=== PATIENT | female | born 1980 | race Caucasian/White ===

== ENCOUNTER → 2016-05-12 | Outpatient (CLI) | payer BC ==
[2016-05-12 11:29] LABS: Basophils # (A) 0.1 k/uL (0-0.2); Basophils % (A) 1 %; CH 30.9; CHCM 31.3; Eosinophils # (A) 0.1 k/uL (0-0.7); Eosinophils % (A) 1 %; HCT 44.1 % (34.0-46.0); HGB 14.1 gm/dL (11.4-16.0); Hypochromasia Slight; Luc # (Auto) 0.22; Luc % (Auto) 2; Lymphocytes # (A) 1.5 k/uL (1.0-4.8); Lymphocytes % (A) 15 %; MCH 31.7 pg (25.0-35.0); MCV 99.3 fL (80.0-100.0); Mean Platelet Volume 8.9; Monocytes # (A) 0.5 k/uL (0-1.0); Monocytes % (A) 5 %; Neutrophils # (A) 7.5 k/uL (1.3-7.7); Neutrophils % (A) 76 %; RBC 4.44 m/uL (3.80-5.40); WBC 9.9 k/uL (3.8-10.6); WBC (Perox) 10.43
[2016-05-12 12:45] LABS: ALT 31 U/L (9-52); AST 26 U/L (14-36); Alkaline Phosphatase 72 U/L (38-126); Anion Gap 11 mmol/L; Blood Urea Nitrogen 18 mg/dL (7-17); Calcium 9.7 mg/dL (8.4-10.2); Carbon Dioxide 21 mmol/L (22-30); Chloride 109 mmol/L (98-107); Cholesterol 140 mg/dL (<200); Glucose 90 mg/dL (74-99); HDL Cholesterol 39 mg/dL (40-60); Non-African American GFR(MDRD) >60 (>60 ml/min/1.73 sqM); Potassium 4.5 mmol/L (3.5-5.1); Sodium 141 mmol/L (137-145); Total Bilirubin 0.9 mg/dL (0.2-1.3); Triglycerides 161 mg/dL (<150)
[2016-05-12 13:33] LABS: Vitamin B12 704 pg/mL (239-931)
[2016-05-14 14:16] LABS: Methylmalonic Acid 0.13 umol/L (<0.40)
== END | disposition home or self-care (01) ==
LOC: LABWHC1 11:07
PROVIDERS: ATTEND Internal Medicine Interventional Cardiology
DX: D51.9 Vitamin B12 deficiency anemia, unspecified (principal); D52.9 Folate deficiency anemia, unspecified; I67.89 Other cerebrovascular disease; I10 Essential (primary) hypertension; E78.2 Mixed hyperlipidemia
CPT/HCPCS: 36415; 80053; 80061; 82607; 82747; 83921; 85025

== ENCOUNTER → 2016-06-04 | Outpatient (CLI) | payer BC ==
--- NOTE | 2016-06-04 09:21 | MR ---
EXAMINATION TYPE: MR angio head wo con DATE OF EXAM: 06/04/2016 9:06 AM COMPARISON: NONE HISTORY: Stroke. TECHNIQUE: Time of flight images focusing on the [place] were performed without contrast. FINDINGS: The right vertebral artery is dominant. The right posterior communicating artery is visuali zed. The left is not. Both ophthalmic arteries are visualized. The M1 segment of the right middle cerebral artery is occluded. Vasculature in the right middle cereb ral artery territory is markedly decreased. There is also occlusion of the A1 segment of the left anterior cerebral artery. The anterior communic ating artery is not visualized. No sizable aneurysm is seen. IMPRESSION: 1. OCCLUSION OF THE M1 SEGMENT OF THE RIGHT MIDDLE CEREBRAL ARTERY. 2. OCCLUSION OF THE A1 SEGMENT OF THE ANTERIOR CEREBRAL ARTERY ON THE LEFT. 3. NONVISUALIZATION OF THE ANTERIOR COMMUNICATING ARTERY.
== END | disposition home or self-care (01) ==
LOC: RADMRIMAIN 08:24
PROVIDERS: ATTEND Psychiatry & Neurology Neurology
DX: I63.9 Cerebral infarction, unspecified (principal); I66.01 Occlusion and stenosis of right middle cerebral artery; I66.12 Occlusion and stenosis of left anterior cerebral artery
CPT/HCPCS: 70544

== ENCOUNTER 2016-06-07 12:09 | Emergency (ER) | payer BC ==
[2016-06-07] MEDS ORDERED: SODIUM CHLORIDE 0.9% 1,000 ML IV STA (15:29)
[2016-06-07] MEDS ORDERED: HYDROmorphone 1 MG/ML 1 ML SYRINGE IVP STA (15:31)
--- NOTE | 2016-06-07 15:37 | ED ---
General Adult HPI - General Chief complaint: Recheck/Abnormal Lab/Rx Stated complaint: poss stroke, all-over pain Time Seen by Provider: 06/07/16 15:16 Source: patient Mode of arrival: wheelchair Limitations: no limitations - History of Present Illness Initial comments: I am she has a recent history of 4 hours for 06 she had a full stroke at age of 35 that was in July 2015 and since then she has a residual weakness of the left upper extremity and the left lower extremity she presents with the left upper extremity pain and the left lower extremity pain she was doing physical therapy she denies any fall no trauma no car accidents with her pain is unbearable she is crying denies any headaches no blurred vision no slurred speech no difficulty comprehending speech but she is concerned is that another new stroke denies any chest pain no abdominal pain no frequency urgency dysuria - Related Data Home Medications Medication Instructions Recorded Confirmed Aspirin 81 mg PO DAILY 02/02/16 06/07/16 Atorvastatin [Lipitor] 80 mg PO DAILY 02/02/16 06/07/16 DULoxetine HCL [Cymbalta] 30 mg PO DAILY 02/02/16 06/07/16 Gabapentin [Neurontin] 400 mg PO TID 02/02/16 06/07/16 Isomethept/Dichlphn/Acetaminop 1 cap PO BID PRN 02/02/16 06/07/16 [Midrin] Lisinopril [Zestril] 20 mg PO DAILY 02/02/16 06/07/16 Topiramate [Topamax] 50 mg PO HS 02/02/16 06/07/16 clonazePAM [KlonoPIN] 0.5 mg PO TID 02/02/16 06/07/16 tiZANidine HCL 12 mg PO HS 02/02/16 06/07/16 Baclofen [Lioresal] 10 mg PO Q6H PRN 06/07/16 06/07/16 Cyanocobalamin [Vitamin B-12 1,000 mcg SQ QMONTH 06/07/16 06/07/16 Injection] Folic Acid 1 mg PO DAILY 06/07/16 06/07/16 Hydrochlorothiazide [Hydrodiuril] 12.5 mg PO DAILY 06/07/16 06/07/16 Warfarin [Coumadin] 2.5 mg PO TUTH 06/07/16 06/07/16 Warfarin [Coumadin] 5 mg PO SUMOWEFRSA 06/07/16 06/07/16 Previous Rx's Medication Instructions Recorded amLODIPine [Norvasc] 10 mg PO DAILY #30 tablet 02/04/16 oxyCODONE-APAP 7.5-325MG [Percocet 1 tab PO Q6HR PRN #20 tab 06/07/16 7.5-325 mg] Allergies Allergy/AdvReac Type Severity Reaction Status Date / Time pregabalin [From Lyrica] Allergy Swelling Verified 06/07/16 15:17 Review of Systems ROS Statement: Those systems with pertinent positive or pertinent negative responses have been documented in the HPI. ROS Other: All systems not noted in ROS Statement are negative. Past Medical History Past Medical History: CVA/TIA, Fibromyalgia Additional Past Medical History / Comment(s): Pt states she has had 2 previous CVAs with L sided weakness, she currently has a loop recorder in place and states she has had 2 pauses-one 3 seconds and was asymptomatic and one 8 seconds where she felt briefly dizzy, headaches, L hand pain and sometimes hand curls. History of Any Multi-Drug Resistant Organisms: None Reported Past Surgical History: Tonsillectomy Additional Past Surgical History / Comment(s): 09/2015 loop recorder, GEORGE, EGD Past Anesthesia/Blood Transfusion Reactions: No Reported Reaction Past Psychological History: Anxiety Additional Psychological History / Comment(s): Pt states she takes klonopin for anxiety and that it works well. She lives with her spouse and is adopting a 1 yr old boy. She states that the adoption is somewhat stressful because it is a family adoption so the child's mother is around. She states her strokes have also made her have increased anxiety. She uses no assistive device. She is not driving at this time. Smoking Status: Never smoker Past Alcohol Use History: None Reported Past Drug Use History: None Reported - Past Family History Father Family Medical History: Coronary Artery Disease (CAD), Diabetes Mellitus Additional Family Medical History / Comment(s): Father has a stent that was placed when he was 67yrs old. Mother Family Medical History: Cancer, Hypertension Additional Family Medical History / Comment(s): Mother has had breast cancer and melanoma. General Exam - General Exam Comments Initial Comments: General: The patient is awake and alert, in no distress, and does not appear acutely ill. She has is 15 Skin: Skin is warm and dry and no rashes or lesions are noted. Eye: Pupils are equal, round and reactive to light, extra-ocular movements are intact; there is normal conjunctiva bilaterally. Ears, nose, mouth and throat: There are moist mucous membranes and no oral lesions. Neck: The neck is supple, there is no tenderness or JVD. Cardiovascular: There is a regular rate and rhythm. No murmur, rub or gallop is appreciated. Respiratory: To auscultation bilateral, no wheezing no rhonchi no distress respiratory longo noticed Gastrointestinal: Soft, non-distended, non-tender abdomen without masses or organomegaly noted. There is no rebound or guarding present. Bowel sounds are unremarkable. Back: There is no tenderness to palpation in the midline. There is no obvious deformity. Musculoskeletal: Normal ROM, no tenderness, There is no pedal edema. There is no calf tenderness or swelling. No cords were appreciated. Neurological: CN II-XII intact, she has a residual weakness of the left upper extremity from her previous stroke and there is a mild contracture of the left hand as well sensory functions are intact left lower extremity motor and sensory functions are intact deep tendon reflexes are within normal range Psychiatric: Cooperative, seems depressed Limitations: no limitations Course Vital Signs 06/07/16 06/07/16 06/07/16 12:15 15:38 16:41 Temperature 97.4 F L Pulse Rate 68 66 79 Respiratory 18 17 17 Rate Blood Pressure 181/104 169/85 153/79 O2 Sat by Pulse 100 100 Oximetry She was reassessed 3 times last reassessment was done at 181, CT report as well as reviewed and discussed with the patient on the findings comparing to her old CT done here in this hospital, and she told me that she had another stroke and that was in [facility] within the last few weeks she seen Dr. Mora a neurologist and she had MRA done and she is easily she is also seeing a neurosurgeon and waning stateshe do not want to stay in the hospital, I offered her to be observed in the hospital for [address] Hogue see her as she said she is all set since he had MRA done there was seen to Dr. Brito neurologist and a neurosurgeon or she is requesting some pain medications were discussed with(s) for his pain management is concerned EKG Findings - EKG Comments: EKG Findings:: EKG is normal sinus rhythm with a ventricular rate is 79 MA interval is 134 QRS duration is 92 QT/QTc C is 486/4672 field of this EKG WILVER reason T-wave inversion in lead V2 no ST elevation or ST depression noticed in the other leads Medical Decision Making - Lab Data Result diagrams: 06/07/16 15:35 06/07/16 15:35 Lab Results 06/07/16 06/07/16 06/07/16 Range/Units 15:35 15:35 15:35 WBC 10.2 (3.8-10.6) k/uL RBC 4.50 (3.80-5.40) m/uL Hgb 13.8 (11.4-16.0) gm/dL Hct 41.9 (34.0-46.0) % MCV 93.0 D (80.0-100.0) fL MCH 30.6 (25.0-35.0) pg MCHC 33.0 (31.0-37.0) g/dL RDW 12.5 (11.5-15.5) % Plt Count 232 (150-450) k/uL Neutrophils % 73 % Lymphocytes % 18 % Monocytes % 5 % Eosinophils % 2 % Basophils % 1 % Neutrophils # 7.4 (1.3-7.7) k/uL Lymphocytes # 1.8 (1.0-4.8) k/uL Monocytes # 0.5 (0-1.0) k/uL Eosinophils # 0.2 (0-0.7) k/uL Basophils # 0.1 (0-0.2) k/uL PT (9.0-12.0) sec INR (<1.1) APTT (22.0-30.0) sec Sodium 141 (137-145) mmol/L Potassium 4.5 (3.5-5.1) mmol/L Chloride 106 (98-107) mmol/L Carbon Dioxide 23 (22-30) mmol/L Anion Gap 12 mmol/L BUN 25 H (7-17) mg/dL Creatinine 0.80 (0.52-1.04) mg/dL Est GFR (MDRD) Af Amer >60 (>60 ml/min/1.73 sqM) Est GFR (MDRD) Non-Af >60 (>60 ml/min/1.73 sqM) Glucose 90 (74-99) mg/dL Calcium 9.7 (8.4-10.2) mg/dL Total Bilirubin 0.8 (0.2-1.3) mg/dL AST 32 (14-36) U/L ALT 27 (9-52) U/L Alkaline Phosphatase 78 (38-126) U/L Total Creatine Kinase 125 (30-135) U/L CK-MB (CK-2) 1.6 (0.0-2.4) ng/mL CK-MB (CK-2) Rel Index 1.3 Troponin I <0.012 (0.000-0.034) ng/mL Total Protein 7.8 (6.3-8.2) g/dL Albumin 4.3 (3.5-5.0) g/dL 06/07/16 Range/Units 15:35 WBC (3.8-10.6) k/uL RBC (3.80-5.40) m/uL Hgb (11.4-16.0) gm/dL Hct (34.0-46.0) % MCV (80.0-100.0) fL MCH (25.0-35.0) pg MCHC (31.0-37.0) g/dL RDW (11.5-15.5) % Plt Count (150-450) k/uL Neutrophils % % Lymphocytes % % Monocytes % % Eosinophils % % Basophils % % Neutrophils # (1.3-7.7) k/uL Lymphocytes # (1.0-4.8) k/uL Monocytes # (0-1.0) k/uL Eosinophils # (0-0.7) k/uL Basophils # (0-0.2) k/uL PT 15.7 H (9.0-12.0) sec INR 1.6 (<1.1) APTT 26.3 (22.0-30.0) sec Sodium (137-145) mmol/L Potassium (3.5-5.1) mmol/L Chloride (98-107) mmol/L Carbon Dioxide (22-30) mmol/L Anion Gap mmol/L BUN (7-17) mg/dL Creatinine (0.52-1.04) mg/dL Est GFR (MDRD) Af Amer (>60 ml/min/1.73 sqM) Est GFR (MDRD) Non-Af (>60 ml/min/1.73 sqM) Glucose (74-99) mg/dL Calcium (8.4-10.2) mg/dL Total Bilirubin (0.2-1.3) mg/dL AST (14-36) U/L ALT (9-52) U/L Alkaline Phosphatase (38-126) U/L Total Creatine Kinase (30-135) U/L CK-MB (CK-2) (0.0-2.4) ng/mL CK-MB (CK-2) Rel Index Troponin I (0.000-0.034) ng/mL Total Protein (6.3-8.2) g/dL Albumin (3.5-5.0) g/dL Disposition Clinical Impression: Left-sided weakness Disposition: HOME SELF-CARE Condition: Good Instructions: Self Care Measures After a Stroke (ED) Prescriptions: oxyCODONE-APAP 7.5-325MG [Percocet 7.5-325 mg] 1 tab PO Q6HR PRN #20 tab PRN Reason: Pain Referrals: Nonstaff,Physician [Primary Care Provider] - 1-2 days
[2016-06-07 15:39] VITALS: RESP 17
[2016-06-07 15:50] LABS: Basophils # (A) 0.1 k/uL (0-0.2); Basophils % (A) 1 %; CH 30.8; CHCM 33.3; Eosinophils # (A) 0.2 k/uL (0-0.7); Eosinophils % (A) 2 %; HCT 41.9 % (34.0-46.0); HDW 2.53; HGB 13.8 gm/dL (11.4-16.0); Luc # (Auto) 0.23; Luc % (Auto) 2; Lymphocytes # (A) 1.8 k/uL (1.0-4.8); Lymphocytes % (A) 18 %; MCH 30.6 pg (25.0-35.0); Mean Platelet Volume 8.4; Monocytes # (A) 0.5 k/uL (0-1.0); Monocytes % (A) 5 %; Neutrophils # (A) 7.4 k/uL (1.3-7.7); Neutrophils % (A) 73 %; RDW 12.5 % (11.5-15.5); WBC 10.2 k/uL (3.8-10.6); WBC (Perox) 10.34
[2016-06-07 16:02] LABS: ALT 27 U/L (9-52); AST 32 U/L (14-36); Alkaline Phosphatase 78 U/L (38-126); Anion Gap 12 mmol/L; Blood Urea Nitrogen 25 mg/dL (7-17); Calcium 9.7 mg/dL (8.4-10.2); Carbon Dioxide 23 mmol/L (22-30); Chloride 106 mmol/L (98-107); Glucose 90 mg/dL (74-99); INR 1.6 (<1.1); Partial Thromboplastin Time 26.3 sec (22.0-30.0); Potassium 4.5 mmol/L (3.5-5.1); Prothrombin Time 15.7 sec (9.0-12.0); Sodium 141 mmol/L (137-145); Total Bilirubin 0.8 mg/dL (0.2-1.3); Total Protein 7.8 g/dL (6.3-8.2)
--- NOTE | 2016-06-07 16:16 | CT ---
EXAMINATION TYPE: CT brain wo con DATE OF EXAM: 06/07/2016 4:01 PM COMPARISON: 02/02/2016 HISTORY: 35-year-old female with left sided body pain with history of CVA. Neurologic deficits. TECHNIQUE: Examination was done in axial plane without intravenous contrast. Coronal and sagittal r econstructions performed. CT DLP: 1017.9 mGycm Automated exposure control for dose reduction was used. FINDINGS: As compared to 02/02/2016, there has been right MCA territory infarct involving the frontal lobe, ant erior insular lobe, and anterior temporal lobe. Hypodensity measures that of CSF density suggesting encephalomalacia and chronic insult. There is ex vacuo enlargement of the frontal horn and body of the right lateral ventricle. There is n o midline shift or effacement of basal subarachnoid cisterns. No hydrocephalus. No evidence for acut e intracranial hemorrhage. Patient's gaze is divergent suggesting underlying strabismus. Paranasal sinuses and mastoid air cells well pneumatized. IMPRESSION: 1. Chronic right MCA territory infarct though new from 02/02/2016. If there is concern for subtle und erlying acute ischemia, MRI can be considered. 2. No acute intracranial hemorrhage, mass effect, or midline shift.
[2016-06-07 16:18] LABS: Non-African American GFR(MDRD) >60 (>60 ml/min/1.73 sqM)
[2016-06-07 16:20] LABS: Creatine Kinase 125 U/L (30-135)
--- NOTE | 2016-06-07 16:28 | XR ---
EXAMINATION TYPE: XR chest 2V DATE OF EXAM: 06/07/2016 4:19 PM COMPARISON: 02/02/2016 HISTORY: 35 year-old female altered mental status TECHNIQUE: Frontal and lateral views FINDINGS: Heart appears prominent likely due to AP projection. Aorta and pulmonary vasculature within normal li mits. No consolidation or pleural effusion. A rectangular electronic device projects over the left he art likely a loop recorder. IMPRESSION: No acute cardiopulmonary process.
[2016-06-07 16:39] LABS: Creatine Kinase MB 1.6 ng/mL (0.0-2.4); Troponin I <0.012 ng/mL (0.000-0.034)
[2016-06-07 18:52] VITALS: BP 152/69; PULSE 78; TEMP 97.8
== END 2016-06-07 18:51 | disposition home or self-care (01) ==
LOC: EC 12:09
DX: I69.954 Hemiplegia and hemiparesis following unspecified cerebrovascular disease affecting left non-dominant side (principal); F41.9 Anxiety disorder, unspecified; Z88.8 Allergy status to other drugs, medicaments and biological substances; Z79.01 Long term (current) use of anticoagulants; Z79.82 Long term (current) use of aspirin; Z79.899 Other long term (current) drug therapy
CPT/HCPCS: 99284 ×2; 96374 ×2; 96361 ×4; 36415; 93005; 80053; 82550; 82553; 84484; 85025; 85610; 85730; 71020; 70450; J1170

== ENCOUNTER 2016-06-13 12:10 | Inpatient (IN) | payer BC ==
[2016-06-13] MEDS ORDERED: SODIUM CHLORIDE 0.9% 1,000 ML IV STA (12:16)
[2016-06-13] MEDS ORDERED: RX INFO: IV CONTRAST WAS GIVEN 1 EACH MISC MISCELLANE PRN (12:16)
[2016-06-13 12:29] LABS: Glucose,Whole Blood 132 mg/dL (75-99)
--- NOTE | 2016-06-13 12:30 | ED ---
General Adult HPI - General Stated complaint: Poss.Stroke Time Seen by Provider: 06/13/16 12:15 Source: patient, EMS, RN notes reviewed Mode of arrival: EMS Limitations: altered mental status, physical limitation - History of Present Illness Initial comments: Patient is a pleasant 35-year-old female presenting to the emergency department for family concerns of stroke. The report patient woke around 7 AM and has been more confused since that time. Patient has left-sided weakness. Patient has some chronic left-sided weakness and EMS is unclear how this relates to baseline. Patient is a poor historian however denies any complaints. Patient states she is normal for her baseline. EMS reports patient did walk fine to the stretcher. - Related Data Home Medications Medication Instructions Recorded Confirmed Aspirin 81 mg PO DAILY 02/02/16 06/13/16 Atorvastatin [Lipitor] 80 mg PO DAILY 02/02/16 06/13/16 DULoxetine HCL [Cymbalta] 30 mg PO DAILY 02/02/16 06/13/16 Gabapentin [Neurontin] 400 mg PO TID 02/02/16 06/13/16 Lisinopril [Zestril] 20 mg PO DAILY 02/02/16 06/13/16 Topiramate [Topamax] 50 mg PO HS 02/02/16 06/13/16 Baclofen [Lioresal] 10 mg PO Q6H PRN 06/07/16 06/13/16 Cyanocobalamin [Vitamin B-12 1,000 mcg SQ QMONTH 06/07/16 06/13/16 Injection] Folic Acid 1 mg PO DAILY 06/07/16 06/13/16 Hydrochlorothiazide [Hydrodiuril] 12.5 mg PO DAILY 06/07/16 06/13/16 Warfarin [Coumadin] 2.5 mg PO TU 06/07/16 06/13/16 Warfarin [Coumadin] 5 mg PO SUMOWETHFRSA 06/07/16 06/13/16 Diazepam [Valium] 2 mg PO HS 06/13/16 06/13/16 LORazepam [Ativan] 0.5 mg PO ONCE PRN 06/13/16 06/13/16 tiZANidine HCL [Zanaflex] 8 mg PO HS 06/13/16 06/13/16 Previous Rx's Medication Instructions Recorded amLODIPine [Norvasc] 10 mg PO DAILY #30 tablet 02/04/16 oxyCODONE-APAP 7.5-325MG [Percocet 1 tab PO Q6HR PRN #20 tab 06/07/16 7.5-325 mg] Allergies Allergy/AdvReac Type Severity Reaction Status Date / Time pregabalin [From Lyrica] Allergy Swelling Verified 06/13/16 14:15 Review of Systems ROS Statement: Those systems with pertinent positive or pertinent negative responses have been documented in the HPI. ROS Other: All systems not noted in ROS Statement are negative. Constitutional: Denies: fever Eyes: Denies: eye pain ENT: Denies: ear pain Respiratory: Denies: cough Cardiovascular: Denies: chest pain Endocrine: Denies: fatigue Gastrointestinal: Denies: abdominal pain Genitourinary: Denies: dysuria Musculoskeletal: Denies: back pain Skin: Denies: rash Neurological: Denies: weakness Past Medical History Past Medical History: CVA/TIA, Fibromyalgia Additional Past Medical History / Comment(s): Pt states she has had 2 previous CVAs with L sided weakness, she currently has a loop recorder in place and states she has had 2 pauses-one 3 seconds and was asymptomatic and one 8 seconds where she felt briefly dizzy, headaches, L hand pain and sometimes hand curls. History of Any Multi-Drug Resistant Organisms: None Reported Past Surgical History: Tonsillectomy Additional Past Surgical History / Comment(s): 09/2015 loop recorder, GEORGE, EGD Past Anesthesia/Blood Transfusion Reactions: No Reported Reaction Past Psychological History: Anxiety Additional Psychological History / Comment(s): Pt states she takes klonopin for anxiety and that it works well. She lives with her spouse and is adopting a 1 yr old boy. She states that the adoption is somewhat stressful because it is a family adoption so the child's mother is around. She states her strokes have also made her have increased anxiety. She uses no assistive device. She is not driving at this time. Smoking Status: Never smoker Past Alcohol Use History: None Reported Past Drug Use History: None Reported - Past Family History Father Family Medical History: Coronary Artery Disease (CAD), Diabetes Mellitus Additional Family Medical History / Comment(s): Father has a stent that was placed when he was 67yrs old. Mother Family Medical History: Cancer, Hypertension Additional Family Medical History / Comment(s): Mother has had breast cancer and melanoma. General Exam Limitations: no limitations General appearance: alert, in no apparent distress Head exam: Present: atraumatic Eye exam: Present: normal appearance, other (Left pupil appears slightly dilated. Difficulty with left lateral gaze and upper gaze. Nystagmus on right gaze.) ENT exam: Present: normal oropharynx Neck exam: Present: normal inspection Respiratory exam: Present: normal lung sounds bilaterally Cardiovascular Exam: Present: regular rate, normal rhythm GI/Abdominal exam: Present: soft. Absent: tenderness Extremities exam: Present: normal inspection Neurological exam: Present: alert, altered (Oriented to year however unable oriented to month.), other (Somewhat limited exam. Difficulty following commands.) Expanded Neurological exam: Present: other (Left facial droop) Patient oriented to: Present: person, place. Absent: time Cranial nerves: Facial Sensation: Normal Sensory exam: Upper Extremity Light Touch: Normal, Lower Extremity Light Touch: Normal Motor strength exam: RUE: 2/1 (Good liver trimmer strength. Unable to hold arm up), LUE : 2/1 (Left hand contracted. Poor liver trimmer strength. Unable to hold arm.), RLE: 2/ 1, LLE: 2/1 Eye Response: (4) open spontaneously Motor Response: (6) obeys commands (With difficulty) Verbal Response: (4) confused conversation Psychiatric exam: Present: normal affect, normal mood Skin exam: Absent: rash Course Vital Signs 06/13/16 06/13/16 12:18 14:00 Temperature 97.6 F Pulse Rate 79 62 Respiratory 18 20 Rate Blood Pressure 124/74 143/86 O2 Sat by Pulse 97 Oximetry - Reevaluation(s) Reevaluation #1: 06/13/16 12:50 Patient reevaluated and drowsy. Family is present and states patient complained of anxiety this morning and took an Ativan that was not hers. They confirm onset of symptoms was prior to 7 AM. Unknown exact onset. 06/13/16 14:34 Further history taken from Dr. Xavier who states there has been evaluation for vascular disease. Patient has had high homocystine level and receptor positive for MTHFR mutation 06/13/16 17:01 Patient reexamined and significantly improved. Patient only with left arm weakness and left facial weakness. Extraocular muscles are intact. Patient updated on results and plan. Case discussed in detail with Dr. Brito, who will admit for hospital call. EKG Findings - EKG Comments: EKG Findings:: Normal sinus rhythm at 76. NC 144. QRS 94. QT 406. QTc 456. Normal axis. LVH criteria. No acute ST change. Medical Decision Making - Lab Data Result diagrams: 06/13/16 15:11 06/13/16 15:11 Lab Results 06/13/16 06/13/16 06/13/16 Range/Units 12:13 15:11 15:11 WBC 16.0 H (3.8-10.6) k/uL RBC 4.50 (3.80-5.40) m/uL Hgb 14.3 (11.4-16.0) gm/dL Hct 41.9 (34.0-46.0) % MCV 93.2 (80.0-100.0) fL MCH 31.7 (25.0-35.0) pg MCHC 34.0 (31.0-37.0) g/dL RDW 12.4 (11.5-15.5) % Plt Count 258 (150-450) k/uL Neutrophils % 84 % Lymphocytes % 9 % Monocytes % 5 % Eosinophils % 0 % Basophils % 0 % Neutrophils # 13.5 H (1.3-7.7) k/uL Lymphocytes # 1.4 (1.0-4.8) k/uL Monocytes # 0.8 (0-1.0) k/uL Eosinophils # 0.0 (0-0.7) k/uL Basophils # 0.1 (0-0.2) k/uL PT 17.8 H (9.0-12.0) sec INR 1.8 (<1.1) APTT 28.1 (22.0-30.0) sec Sodium (137-145) mmol/L Potassium (3.5-5.1) mmol/L Chloride (98-107) mmol/L Carbon Dioxide (22-30) mmol/L Anion Gap mmol/L BUN (7-17) mg/dL Creatinine (0.52-1.04) mg/dL Est GFR (MDRD) Af Amer (>60 ml/min/1.73 sqM) Est GFR (MDRD) Non-Af (>60 ml/min/1.73 sqM) Glucose (74-99) mg/dL POC Glucose (mg/dL) 132 H (75-99) mg/dL POC Glu Recycle Coordinator ID Fay Sol Calcium (8.4-10.2) mg/dL Total Bilirubin (0.2-1.3) mg/dL AST (14-36) U/L ALT (9-52) U/L Alkaline Phosphatase (38-126) U/L Total Creatine Kinase (30-135) U/L CK-MB (CK-2) (0.0-2.4) ng/mL CK-MB (CK-2) Rel Index Troponin I (0.000-0.034) ng/mL Total Protein (6.3-8.2) g/dL Albumin (3.5-5.0) g/dL Urine Color Urine Appearance (Clear) Urine pH (5.0-8.0) Ur Specific [place] (1.001-1.035) Urine Protein (Negative) Urine Glucose (UA) (Negative) Urine Ketones (Negative) Urine Blood (Negative) Urine Nitrite (Negative) Urine Bilirubin (Negative) Urine Urobilinogen (<2.0) mg/dL Ur Leukocyte Esterase (Negative) Urine WBC (0-5) /hpf Ur Squamous Epith Cells (0-4) /hpf Urine Bacteria (None) /hpf Urine Mucus (None) /hpf 06/13/16 06/13/16 06/13/16 Range/Units 15:11 15:11 15:32 WBC (3.8-10.6) k/uL RBC (3.80-5.40) m/uL Hgb (11.4-16.0) gm/dL Hct (34.0-46.0) % MCV (80.0-100.0) fL MCH (25.0-35.0) pg MCHC (31.0-37.0) g/dL RDW (11.5-15.5) % Plt Count (150-450) k/uL Neutrophils % % Lymphocytes % % Monocytes % % Eosinophils % % Basophils % % Neutrophils # (1.3-7.7) k/uL Lymphocytes # (1.0-4.8) k/uL Monocytes # (0-1.0) k/uL Eosinophils # (0-0.7) k/uL Basophils # (0-0.2) k/uL PT (9.0-12.0) sec INR (<1.1) APTT (22.0-30.0) sec Sodium 143 (137-145) mmol/L Potassium 4.4 (3.5-5.1) mmol/L Chloride 105 (98-107) mmol/L Carbon Dioxide 21 L (22-30) mmol/L Anion Gap 17 mmol/L BUN 34 H (7-17) mg/dL Creatinine 1.20 H (0.52-1.04) mg/dL Est GFR (MDRD) Af Amer >60 (>60 ml/min/1.73 sqM) Est GFR (MDRD) Non-Af 51 (>60 ml/min/1.73 sqM) Glucose 89 (74-99) mg/dL POC Glucose (mg/dL) (75-99) mg/dL POC Glu Recycle Coordinator ID Calcium 10.2 (8.4-10.2) mg/dL Total Bilirubin 0.7 (0.2-1.3) mg/dL AST 34 (14-36) U/L ALT 35 (9-52) U/L Alkaline Phosphatase 92 (38-126) U/L Total Creatine Kinase 225 H (30-135) U/L CK-MB (CK-2) 1.7 (0.0-2.4) ng/mL CK-MB (CK-2) Rel Index 0.8 Troponin I <0.012 (0.000-0.034) ng/mL Total Protein 8.5 H (6.3-8.2) g/dL Albumin 4.6 (3.5-5.0) g/dL Urine Color Light Yellow Urine Appearance Clear (Clear) Urine pH 5.5 (5.0-8.0) Ur Specific [place] 1.007 (1.001-1.035) Urine Protein Negative (Negative) Urine Glucose (UA) Negative (Negative) Urine Ketones Negative (Negative) Urine Blood Trace H (Negative) Urine Nitrite Negative (Negative) Urine Bilirubin Negative (Negative) Urine Urobilinogen <2.0 (<2.0) mg/dL Ur Leukocyte Esterase Negative (Negative) Urine WBC 1 (0-5) /hpf Ur Squamous Epith Cells 2 (0-4) /hpf Urine Bacteria Rare H (None) /hpf Urine Mucus Rare H (None) /hpf - Radiology Data Radiology results: image reviewed (Chest x-ray shows no acute process. Computed tomography scan of the brain shows no acute process, old right frontal parietal infarct.) Disposition Clinical Impression: Transient cerebral ischemia Disposition: ADMITTED IP TO THIS HOSP Condition: Serious
--- NOTE | 2016-06-13 13:34 | CT ---
EXAMINATION TYPE: CT brain wo con for TPA DATE OF EXAM: 06/13/2016 1:27 PM COMPARISON: 06/07/2016 INDICATION: Decrease LOC with confusion DLP: 1054.2 mGycm, Automated exposure control for dose reduction was used. CONTRAST: None CT of the brain is performed utilizing 3 mm thick sections through the posterior fossa and 3 mm thick sections through the remaining calvarium. Study is performed within 24 hours of arrival to the hosp ital. No abnormal hyperdensity is present to suggest an acute intracranial hemorrhage. No mass lesion is evident. No acute infarcts are evident. There is an old right frontal parietal infarct. Periventricular white matter hypodensity is present compatible with white matter ischemic changes. These findings appear to be old with ex vacuo effect evident on the right lateral ventricle. No midline shift is evident. Ventricles and sulci are prominent for the patient age. Mucosal thickening is through the bilateral maxillary sinuses. IMPRESSIONS: 1. Old right frontal parietal infarct with periventricular white matter ischemic changes. 2. No acute intracranial hemorrhage evident.
--- NOTE | 2016-06-13 13:55 | XR ---
EXAMINATION TYPE: XR chest 1V portable DATE OF EXAM: 06/13/2016 1:51 PM Comparison: 06/07/2016 Clinical History: 35-year-old female confusion, altered mental state Findings: Low lung volumes and lordotic positioning. This likely accentuates heart size and crowds the vascular markings. No consolidation, pneumothorax, or significant pleural effusion. Probable loop recorder pr ojecting along the left heart margin. Impression: Large body habitus and hypoventilatory changes. No definite acute process.
[2016-06-13] MEDS ORDERED: ACETAMINOPHEN TAB 500 MG TAB PO STA (15:50)
[2016-06-13 15:58] LABS: Appearance,Urine Clear (Clear); Bacteria,Urine Rare /hpf; Bilirubin,Urine Negative (Negative); Glucose,Urine (UA) Negative (Negative); Ketones,Urine Negative (Negative); Leukocyte Esterase,Urine Negative (Negative); Mucus,Urine Rare /hpf; Nitrite,Urine Negative (Negative); PH, Urine 5.5 (5.0-8.0); Particle Count 1925; Protein,Urine Negative (Negative); Specific Gravity,Urine 1.007 (1.001-1.035); Squamous Epithelial Cell,Urine 2 /hpf (0-4); UA Billing (MACRO vs. MICRO) MICRO; Urobilinogen,Urine <2.0 mg/dL (<2.0); WBC,Urine 1 /hpf (0-5)
[2016-06-13 16:05] LABS: Basophils # (A) 0.1 k/uL (0-0.2); Basophils % (A) 0 %; CH 30.1; CHCM 32.4; Eosinophils % (A) 0 %; HCT 41.9 % (34.0-46.0); HDW 2.48; HGB 14.3 gm/dL (11.4-16.0); Luc # (Auto) 0.23; Luc % (Auto) 1; Lymphocytes # (A) 1.4 k/uL (1.0-4.8); Lymphocytes % (A) 9 %; MCH 31.7 pg (25.0-35.0); MCV 93.2 fL (80.0-100.0); Mean Platelet Volume 8.8; Monocytes # (A) 0.8 k/uL (0-1.0); Monocytes % (A) 5 %; Neutrophils # (A) 13.5 k/uL (1.3-7.7); Neutrophils % (A) 84 %; RDW 12.4 % (11.5-15.5); WBC (Perox) 15.62
[2016-06-13 16:15] LABS: ALT 35 U/L (9-52); AST 34 U/L (14-36); Alkaline Phosphatase 92 U/L (38-126); Anion Gap 17 mmol/L; Blood Urea Nitrogen 34 mg/dL (7-17); Calcium 10.2 mg/dL (8.4-10.2); Carbon Dioxide 21 mmol/L (22-30); Chloride 105 mmol/L (98-107); Glucose 89 mg/dL (74-99); Non-African American GFR(MDRD) 51 (>60 ml/min/1.73 sqM); Potassium 4.4 mmol/L (3.5-5.1); Sodium 143 mmol/L (137-145); Total Bilirubin 0.7 mg/dL (0.2-1.3); Total Protein 8.5 g/dL (6.3-8.2)
[2016-06-13 16:18] LABS: INR 1.8 (<1.1)
[2016-06-13 16:19] LABS: Partial Thromboplastin Time 28.1 sec (22.0-30.0); Prothrombin Time 17.8 sec (9.0-12.0)
[2016-06-13 16:22] LABS: Creatine Kinase 225 U/L (30-135)
[2016-06-13 16:35] LABS: Creatine Kinase MB 1.7 ng/mL (0.0-2.4); Troponin I <0.012 ng/mL (0.000-0.034)
[2016-06-13] MEDS ORDERED: MORPHINE SULFATE 4 MG/ML SYRINGE IV STA (17:00)
[2016-06-13] MEDS ORDERED: ASPIRIN 325 MG TAB PO STA (17:02)
--- NOTE | 2016-06-13 17:34 | CT ---
EXAMINATION TYPE: CT angio head neck DATE OF EXAM: 06/13/2016 5:02 PM HISTORY: increased weakness. History of multiple strokes in the past year COMPARISON: CTA head and neck February 02, 2016. MRA head June 04, 2016. CT DLP: 1504 mGycm. Automated Exposure Control for Dose Reduction was Utilized. TECHNIQUE: CTA scan of the neck is performed with IV Contrast, patient injected with 100 mL of Omnip aque 350, axial images are obtained, coronal and sagittal reformatted images are reviewed. Three-D re constructed images are created on an independent workstation and reviewed. FINDINGS: Carotid/Vascular Structures: There is bovine type aortic arch redemonstrated. Right common carotid ar gerald shows normal origin from right brachiocephalic artery. There is no significant focal plaque or s tenosis in the right common carotid artery as well as the right carotid bulb. Patent external carotid artery is seen without significant plaque. There is small caliber right internal carotid artery shor tly after its origin with narrowing down to 2.2 mm seen on axial image 16 presumed congenital. There is very small supraclinoid segment of distal right internal carotid artery with poor flow seen in sma ll caliber anterior middle cerebral arteries. No significant focal plaque or stenosis left common carotid artery or carotid bulb is seen. No signif icant plaque or stenosis is seen in majority of left internal carotid artery. There is abrupt marked small caliber of the supraclinoid segment left internal carotid artery which remains patent though momin s significant focal narrowing seen best on axial image 40 series 13. There is patent left middle cere bral artery. There is faint small caliber left anterior cerebral artery. Patent small caliber anterio r communicating artery is present. There is patent external carotid artery on the left without signif icant stenosis. There is dominant right vertebral artery. Vertebral arteries are patent to basilar junction. There is hypoplastic left posterior communicating artery. Prior patent right posterior communicating artery o n MRA is not clearly identified suggesting occlusion or stenosis. Other: Age indeterminate infarct right MCA distribution is felt present on current exam similar to mo st recent to CTs with progression from MRI February 02. Acute on chronic infarct cannot be excluded. IMPRESSION: Small to medium vessel vasculitis needs to BE strongly considered as there is atypical si gnificant narrowing of supraclinoid segment distal internal carotid arteries bilaterally. Additional areas of small caliber narrowing in the right internal carotid artery are present. There is generaliz ed small caliber poor flow in the [place] with suspected stenosis of the previously visualiz ed patent right posterior communicating artery.
[2016-06-13] MEDS ORDERED: LORazepam 0.5 MG TAB PO PRN (19:37)
[2016-06-13] MEDS ORDERED: WARFARIN 5 MG TAB PO SCH (19:45)
[2016-06-13 20:10] LABS: Rheumatoid Factor, Qnt <9 IU/mL (<12)
--- NOTE | 2016-06-13 20:47 | XR ---
EXAMINATION TYPE: XR lumbar spine 2 or 3V DATE OF EXAM: 06/13/2016 8:42 PM CLINICAL HISTORY: Low back pain after multiple falls. TECHNIQUE: Frontal and lateral images of the lumbar spine are obtained. COMPARISON: None FINDINGS: There are 5 lumbar type vertebral bodies identified. The lumbar spine shows satisfactory alignment without evidence of acute fracture or dislocation. Vertebral body heights and disk space he ights are within normal limits. Contrast from recent CT is seen filling collecting systems of both ki dneys and opacifying bilateral renal cortex. IMPRESSION: No acute fracture or dislocation is seen in the lumbar spine.
--- NOTE | 2016-06-13 20:48 | XR ---
EXAMINATION TYPE: XR ribs LT DATE OF EXAM: 06/13/2016 8:41 PM COMPARISON: Chest x-ray from earlier today. HISTORY: Chest and left-sided rib pain after fall injury. TECHNIQUE: A frontal and oblique images of the left-sided ribs are acquired. FINDINGS: No acute displaced left-sided rib fractures are seen. Overlying soft tissue is unremarkable . Loop recorder overlies left heart border. Low lung volumes are redemonstrated. IMPRESSION: No acute displaced left-sided rib fractures are evident.
[2016-06-13] MEDS: SODIUM CHLORIDE 0.9% 1,000 ML IV SCH (21:17)
[2016-06-13] MEDS: ONDANSETRON 4 MG/2 ML VIAL IVP PRN (21:18)
[2016-06-13 21:41] VITALS: BMI 39.9
[2016-06-14] MEDS: oxyCODONE-APAP 7.5-325MG 1 EACH TAB PO PRN ×2 (00:01→09:03)
[2016-06-14 01:03] LABS: ANA w/Reflex to Titer NEGATIVE (NEGATIVE)
[2016-06-14 02:15] LABS: Glucose,Whole Blood 134 mg/dL (75-99)
[2016-06-14 07:14] LABS: Prothrombin Time 19.6 sec (9.0-12.0)
[2016-06-14 07:27] LABS: Basophils % (A) 0 %; CH 30.7; CHCM 31.9; Eosinophils % (A) 0 %; HCT 38.1 % (34.0-46.0); HDW 2.34; HGB 12.5 gm/dL (11.4-16.0); Luc # (Auto) 0.13; Luc % (Auto) 1; Lymphocytes % (A) 11 %; MCH 31.6 pg (25.0-35.0); MCHC 32.8 g/dL (31.0-37.0); MCV 96.5 fL (80.0-100.0); Mean Platelet Volume 9.1; Monocytes # (A) 0.4 k/uL (0-1.0); Monocytes % (A) 4 %; Neutrophils # (A) 7.9 k/uL (1.3-7.7); Neutrophils % (A) 83 %; RBC 3.95 m/uL (3.80-5.40); RDW 12.9 % (11.5-15.5); WBC 9.4 k/uL (3.8-10.6); WBC (Perox) 9.41
[2016-06-14 07:39] LABS: Anion Gap 11 mmol/L; Blood Urea Nitrogen 27 mg/dL (7-17); Calcium 9.7 mg/dL (8.4-10.2); Carbon Dioxide 25 mmol/L (22-30); Chloride 105 mmol/L (98-107); Glucose 99 mg/dL (74-99); Non-African American GFR(MDRD) 53 (>60 ml/min/1.73 sqM); Potassium 4.3 mmol/L (3.5-5.1); Sodium 141 mmol/L (137-145)
--- NOTE | 2016-06-14 08:31 | HP ---
DATE OF ADMISSION: CHIEF COMPLAINT: Weakness of the left side of the body. HISTORY OF PRESENT ILLNESS: This 35-year-old woman with a past medical history of old stroke, right frontal and acute CVA, history of fibromyalgia, history of CVA, TIA, history of anxiety, history of peripheral neuropathy, history of hypertension, history of previous stroke being followed by primary physician in [facility], apparently moved to [place] after the patient's first stroke. The patient was admitted last year and was evaluated for possible TIA. Currently the patient fell out of bed this morning and the patient came to [facility] and admitted for further evaluation and treatment. The CT scan redemonstrated old right frontal stroke. The CT angio and MRA was also done. The MRA earlier this month showed occlusion of M1 segment of right MC artery and occlusion of the A1 segment of the anterior cerebral artery on the left. Also, nonvisualization of the anterior communicating artery was also noted. The possibility of was raised by the CT angiography. There is no history of any fever. No history headache, loss of consciousness or seizures. PAST MEDICAL HISTORY: History of CVA, TIA, fibromyalgia, tonsillectomy, anxiety. Medications prior to admission include home medications: 1. Coumadin 2.5 mg p.o. Monday. 2. Zanaflex 8 mg q.h.s. 3. Ativan 0.5 mg p.r.n. 4. OxyContin 7.5 q.6 p.r.n. 5. Norvasc 10 mg p.o. daily. 6. Topamax 50 mg q.h.s. 7. Zestril 20 mg p.o. daily. 8. HydroDIURIL 12.5 mg p.o. daily. 9. Neurontin 400 mg p.o. t.i.d. 10. Folic acid 1 mg p.o. daily. 11. Valium 2 mg p.o. q.h.s. 12. Cymbalta 30 mg p.o. daily. 13. Vitamin B12, 1000 mcg q. monthly. 14. Lioresal 10 mg q.6. 15. Lipitor 80 mg p.o. daily. 16. Aspirin 81 mg daily. 17. Coumadin 5 mg Monday, Monday, Monday, , Monday, Monday. Allergies are LYRICA. FAMILY HISTORY: History of CAD, diabetes mellitus in the family. SOCIAL HISTORY: No history of smoking. No history of alcohol intake. REVIEW OF SYSTEMS: ENT: As mentioned earlier. CARDIOVASCULAR: No angina. RESPIRATORY: No cough. GI: No nausea. : No dysuria. NERVOUS SYSTEM: As mentioned earlier. ALLERGY/IMMUNOLOGY: No asthma or hayfever. MUSCULOSKELETAL: As mentioned earlier. HEMATOLOGY/ONCOLOGY: No history of anemia. ENDOCRINE: As mentioned earlier. DERMATOLOGY: Negative. RHEUMATOLOGY: Negative. PSYCHIATRY: As mentioned earlier. PHYSICAL EXAMINATION: The patient is alert and oriented x3. Pulse is 90, blood pressure 157/74, respirations 18, temperature 98 degrees, pulse ox 100% on 2 L. HEENT: Conjunctivae normal. Oral mucosa moist. NECK: No jugular venous distention. No carotid bruit. No lymph node enlargement. CARDIOVASCULAR: S1 and S2, muffled. No S3, no S4. RESPIRATORY: Breath sounds diminished at the bases. No rhonchi, no crackles. ABDOMEN: Soft, nontender. No mass palpable. LEGS: No edema, no swelling. NERVOUS SYSTEM: Higher function as mentioned earlier. Minimal facial deviation on the left indicating a facialdeviationb on the left side and minimal weakness of the left upper limb 3 to 4 contracture in the left distal arm present, otherwise, minimal weakness of he left lower limb significant for. no abnormalities. SKIN: No ulcers, rashes or bleeding. LYMPHATICS: No lymphadenopathy of neck, axillae or groin. JOINTS: No active deforming arthropathy. LAB INVESTIGATIONS: WBC 16. INR is 1.8. is 1.20. Creatine kinase 225. Total protein is 8.5. ASSESSMENT; 1. Acute stroke or transient ischemic attack on the left side caused by right hemispheric lesion. 2. Old right frontal stroke. 3. Rule out vasculitis. change in MS. Metabolic toxic encephalopathy acute. 4. History of fibromyalgia. 5. History of tonsillectomy. 6. History of anxiety, not otherwise specified. 7. History of hypertension. 8. History of peripheral neuropathy, 9. History of fibromyalgia. 10. History of Loop recorder. RECOMMENDATIONS AND DISCUSSION: In this 35-year-old woman who presented with multiple complex medical issues, will monitor the patient closely. Continue the current medications. Continue symptomatic treatment. Otherwise, at this time I would recommend to continue the antiplatelet agents. Neurology consultation, neurovascular workup and as well as vasculitis workup also. The patient also had elevated PT, INR. Closely monitored. See orders for details. Further recommendations to follow. Prognosis guarded. Discussed with patient. MARY ANN
[2016-06-14] MEDS: ONDANSETRON 4 MG/2 ML VIAL IVP PRN ×3 (09:03→21:16)
[2016-06-14] MEDS: ATORVASTATIN 80 MG TAB PO SCH (09:31)
[2016-06-14] MEDS: DULoxetine HCL 30 MG CAPSULE.DR PO SCH (09:31)
[2016-06-14] MEDS: amLODIPine 10 MG TAB PO SCH (09:31)
[2016-06-14] MEDS: ASPIRIN 325 MG TAB PO SCH (09:31)
[2016-06-14] MEDS: LISINOPRIL 20 MG TAB PO SCH (09:32)
[2016-06-14] MEDS: GABAPENTIN 400 MG CAP PO SCH ×4 (09:32→21:16)
[2016-06-14] MEDS: HYDROCHLOROTHIAZIDE 12.5 MG CAP PO SCH (09:32)
[2016-06-14] MEDS: SODIUM CHLORIDE 0.9% 1,000 ML IV SCH (10:25)
[2016-06-14] MEDS: BACLOFEN 10 MG TAB PO PRN (11:56)
[2016-06-14] MEDS: FOLIC ACID 1 MG TAB PO SCH (11:56)
--- NOTE | 2016-06-14 14:18 | CDI ---
In responding to this query, please exercise your independent professional judgment. The [facility] Coding Staff and Clinical Documentation Specialists appreciate your assistance in clarifying documentation, maintaining compliance with coding guidelines, accurately documenting patients condition and capturing severity of illness. The fact that a question is asked does not imply that any particular answer is desired or expected. Communication forms are a method of clarifying documentation and are not made part of the Legal Health Record. Thank you in advance for your clarification. Last Revision, May 2015 Krupa Martinez [address] [facility] [place] [address] Documentation Clarification Form Date: 06/14/2016 1:21:00 PM From: Maritza Valencia Admit Date: 06/13/2016 5:02:00 PM Patient Name: Casi Snider Visit Number: [id number] Discharge Date: Dr. Dane Brito Altered mental status was documented in the emergency department notes. Patient history/risk factors: CVA with left sided weakness, Fibromyalgia Clinical Indicators: Family report patient has been more confused. Neurological exam: Alert, altered (orientated to year, not oriented to month) Confused conversation, difficulty following commands. Patient states she takes Klonopin for anxiety and she took Ativan that was not hers. Vital signs: 124/74 79 18 97.6 97 % RA Labs: WBC 16.0, BUN 34, CR 1.20, C-Reactive Protein 17.0 Urine Drug screen: Opiates- Detected , Oxycodone -Detected, Benzodiazepines - Detected, Marijuana (THC) Detected Chest x-ay: Negative Brain CT: No acute process Treatment: Neuro assessment per protocol Neurology consult Monitor Labs IV Fluids In your professional opinion, please clarify the etiology of the altered mental status, if known. Encephalopathy (specify Type: Metabolic, Toxic, Other, and Underlying Medical Illness) Delirium (specify cause): Dementia (if know, specify Type and if with/without Behavioral Disturbance) Other condition (please specify) Unable to determine Please document in your progress notes and discharge summary in order to capture severity of illness and risk of mortality. Include clinical findings that support your diagnosis. FYI: Press F11 to launch patient chart. Place X here if this finding has no clinical significance, is not applicable or if you are not able to provide any additional documentation. MTDD
--- NOTE | 2016-06-14 17:50 | P.CNNES ---
History of Present Illness Consult date: 06/14/16 Requesting physician: Dane Brito Reason for Consult: TIA History of Present Illness: Patient is a pleasant 35-year-old female who is being evaluated by the neurology service on 06/14/2016 per the request of Dr. Brito for TIA. Patient does have a history of CVA in June 2015 with right frontoparietal infarct seen on CT. Patient has residual left-sided weakness. Patient also has history of MTHFR. Patient had TIA in September 2015. Patient is on aspirin and Coumadin in the home setting. Patient states she was at home and was fine when she went to bed. Patient woke up in the morning and was unable to get out of bed. Patient states her left sided weakness was worse. EMS was called and patient was transported to [facility] emergency room. The CT that was done on admission redemonstrated old right frontal parietal stroke. CTA revealed consideration for small to medium vessel vasculitis. On admission, WBCs 16.0, RBC 4.5, hemoglobin 14.3, hematocrit 41.9. Patient is on Coumadin and INR is 1.8 on admission. Rheumatoid factor less than 9, a CODY screen negative, CRP 17.0, total creatinine kinase 225. UA showed trace hematuria and was negative for proteinuria. At the time of my evaluation, patient's resting comfortably in bed and appears to be in no acute distress. Past Medical History Past Medical History: CVA/TIA, Fibromyalgia Additional Past Medical History / Comment(s): Pt states she has had 4 previous CVAs with L sided weakness, she currently has a loop recorder in place and states she has had 2 pauses-one 3 seconds and was asymptomatic and one 8 seconds where she felt briefly dizzy, headaches, L hand pain and sometimes hand curls. History of Any Multi-Drug Resistant Organisms: None Reported Past Surgical History: Tonsillectomy Additional Past Surgical History / Comment(s): 09/2015 loop recorder, GEORGE, EGD Past Anesthesia/Blood Transfusion Reactions: No Reported Reaction Past Psychological History: Anxiety Additional Psychological History / Comment(s): Pt states she takes klonopin for anxiety and that it works well. She lives with her spouse and is adopting a 1 yr old boy. She states that the adoption is somewhat stressful because it is a family adoption so the child's mother is around. She states her strokes have also made her have increased anxiety. She uses no assistive device. She is not driving at this time. Smoking Status: Never smoker Past Alcohol Use History: None Reported Past Drug Use History: None Reported - Past Family History Father Family Medical History: Coronary Artery Disease (CAD), Diabetes Mellitus Additional Family Medical History / Comment(s): Father has a stent that was placed when he was 67yrs old. Mother Family Medical History: Cancer, Hypertension Additional Family Medical History / Comment(s): Mother has had breast cancer and melanoma. Medications and Allergies Home Medications Medication Instructions Recorded Confirmed Type Aspirin 81 mg PO DAILY 02/02/16 06/13/16 History Atorvastatin [Lipitor] 80 mg PO DAILY 02/02/16 06/13/16 History DULoxetine HCL [Cymbalta] 30 mg PO DAILY 02/02/16 06/13/16 History Gabapentin [Neurontin] 400 mg PO TID 02/02/16 06/13/16 History Lisinopril [Zestril] 20 mg PO DAILY 02/02/16 06/13/16 History Topiramate [Topamax] 50 mg PO HS 02/02/16 06/13/16 History Baclofen [Lioresal] 10 mg PO Q6H PRN 06/07/16 06/13/16 History Cyanocobalamin [Vitamin B-12 1,000 mcg SQ QMONTH 06/07/16 06/13/16 History Injection] Folic Acid 1 mg PO DAILY 06/07/16 06/13/16 History Hydrochlorothiazide [Hydrodiuril] 12.5 mg PO DAILY 06/07/16 06/13/16 History Warfarin [Coumadin] 2.5 mg PO TU 06/07/16 06/13/16 History Warfarin [Coumadin] 5 mg PO SUMOWETHFRSA 06/07/16 06/13/16 History Diazepam [Valium] 2 mg PO HS 06/13/16 06/13/16 History LORazepam [Ativan] 0.5 mg PO ONCE PRN 06/13/16 06/13/16 History tiZANidine HCL [Zanaflex] 8 mg PO HS 06/13/16 06/13/16 History Allergies Allergy/AdvReac Type Severity Reaction Status Date / Time pregabalin [From Lyrica] Allergy Swelling Verified 06/13/16 14:15 Physical Examination - Vital Signs Vital Signs: Vital Signs Temp Pulse Pulse Resp BP BP Pulse Ox 06/14/16 16:47 87 17 06/14/16 12:00 97.0 F L 87 17 130/69 97 06/14/16 11:10 97.1 F L 87 16 129/80 99 06/14/16 09:01 16 06/14/16 08:11 96 06/14/16 08:00 98.2 F 91 16 136/67 96 06/14/16 04:00 98.8 F 92 18 137/94 100 06/14/16 00:00 100 18 152/88 100 06/13/16 20:00 97.9 F 95 18 151/76 100 06/13/16 18:50 97.6 F 98 18 142/83 100 06/13/16 17:54 98 F 90 18 157/74 100 06/13/16 17:07 93 18 157/74 100 Intake and Output 06/14/16 06/14/16 06/14/16 06:59 14:59 22:59 Intake Total 600 600 Output Total 100 Balance 500 600 Intake: Oral 600 600 Output: Urine 100 Other: Voiding Method Toilet Toilet Toilet # Voids 1 3 Weight 98.9 kg 98.9 kg Patient Weight 06/15/16 06:59 Weight 98.9 kg PHYSICAL EXAM: GENERAL APPEARANCE: Patient is a well-developed, female who appears to be in no acute distress. HEENT: Normocephalic, atraumatic, left facial droop noted on cranial nerve testing. Neck is supple with no masses felt. CARDIOVASCULAR: Regular rate and rhythm. ABDOMEN: Nontender, nondistended. EXTREMITIES: Show no edema or clubbing. Patient has mild contracture of her left hand. NEUROLOGICAL EXAM: Patient is awake, alert, and oriented 3. Speech with trace dysarthria. Language is normal. Left facial droop noted on cranial nerve testing. Strength is 4/5 in the left upper extremity and 5-/5 in the left lower extremity. Mild contracture of the left hand is noted. Strength is full in the right upper and lower extremity. No sensory deficit to light touch noted. No tremors or seizure-like activity is noted. Results - Laboratory Findings CBC and BMP: 06/14/16 06:53 06/14/16 06:53 Abnormal Lab Findings: Abnormal Labs 06/14/16 06/14/16 06/14/16 02:12 04:40 06:53 Neutrophils # 7.9 H PT BUN Creatinine POC Glucose (mg/dL) 134 H Urine Opiates Screen Detected H Ur Oxycodone Screen Detected H U Benzodiazepines Scrn Detected H U Marijuana (THC) Screen Detected H 06/14/16 06/14/16 06:53 06:53 Neutrophils # PT 19.6 H BUN 27 H Creatinine 1.16 H POC Glucose (mg/dL) Urine Opiates Screen Ur Oxycodone Screen U Benzodiazepines Scrn U Marijuana (THC) Screen Assessment and Plan (1) Transient cerebral ischemia Status: Acute (2) Left-sided weakness Status: Acute Plan: Recommendations: It is appear patient had transient ischemic attack with increased left-sided weakness. As previously mentioned, patient CT showed old right frontoparietal infarct with periventricular white matter ischemic changes. Patient is on aspirin and Coumadin in the home setting. Recommend continuing this therapy. CTA of the head and neck reveals consideration for small to medium vessel vasculitis. As you recall, CODY and rheumatology panel were negative. ESR was elevated at 22. CRP was high at 17. UA was negative for proteinuria and hematuria. I will order an MRI of the brain. I will order ANCA, fasting lipid panel, and serum homocysteine level. I will order an EEG. I recommend physical therapy and occupational therapy to evaluate and treat. I recommend a rheumatology consult. I will continue to follow with you. Further recommendations to follow. Thank you for allowing me to participate in the care of your patient. Feel free to call with any questions or concerns. I performed an examination of the patient and discussed the management with the TOP INSTALLER. I have reviewed the TOP INSTALLER notes and agree with the findings and plan of care.
--- NOTE | 2016-06-14 17:55 | XR ---
EXAMINATION TYPE: XR clavicle LT DATE OF EXAM: 06/14/2016 5:40 PM COMPARISON: NONE HISTORY: Pain after trauma TECHNIQUE: 2 AP views FINDINGS: Negative for fracture or malalignment. IMPRESSION: No acute process.
--- NOTE | 2016-06-14 17:57 | XR ---
EXAMINATION TYPE: XR shoulder complete LT DATE OF EXAM: 06/14/2016 5:40 PM COMPARISON: NONE HISTORY: Pain TECHNIQUE: 3 views FINDINGS: Bones and joints and soft tissues are unremarkable. IMPRESSION: NO ACUTE PROCESS.
[2016-06-14] MEDS ORDERED: WARFARIN 2.5 MG TAB PO SCH (18:00)
[2016-06-14] MEDS ORDERED: DIAZEPAM 2 MG TAB PO SCH (21:00)
[2016-06-14] MEDS: TOPIRAMATE 25 MG TAB PO SCH ×2 (21:16)
[2016-06-14] MEDS: tiZANidine 4 MG TAB PO SCH ×2 (21:16)
--- NOTE | 2016-06-14 22:18 | PN ---
DATE OF SERVICE: 06/14/2016 This 35-year-old woman who was admitted with weakness on the left side of the body is being closely monitored. The patient is also complaining of rib pain. X-ray showed no acute abnormality. The lumbar spine x-ray also showed no acute fracture. No chest pain. No palpitation. No fever. On exam, alert and oriented x3. Pulse is 87, blood pressure 130/69, respiration 17, temperature 97 degrees, pulse ox 97% on room air. HEENT: Conjunctivae normal. NECK: No jugular venous distention. CARDIOVASCULAR SYSTEM: S1, S2 muffled. RESPIRATORY SYSTEM: Breath sounds diminished at the bases. No rhonchi. No crackles. ABDOMEN: Soft, nontender. LEGS: No edema. No swelling. NERVOUS SYSTEM: Left-sided weakness and contractures present. LABS: WBC 9.4. INR is 2. Creatinine is 1.16. Glucose 134. Drug screen showed opiate, oxycodone and benzodiazepines as well as THC. ASSESSMENT: 1. Acute stroke or transient ischemic attack on the left side caused by right hemispheric lesion. 2. Old right frontal stroke. 3. Rule out vasculitis. 4. Change in mental status with acute metabolic toxic encephalopathy. 5. History of fibromyalgia. 6. History of tonsillectomy. 7. Positive tetrahydrocannabinol. 8. Anxiety not otherwise specified. 9. History of hypertension, essential. 10. History of peripheral neuropathy. 11. History of fibromyalgia. 12. History of loop recorder. 13. FULL CODE. RECOMMENDATIONS AND DISCUSSION: In this 35-year-old woman who presented with multiple complex medical issues, we will monitor the patient closely, continue the current medications, continue symptomatic treatment. Otherwise, we will follow the patient closely with Neurology. Rib x-ray has been done. I would also obtain a left shoulder x-ray, as the patient is complaining of left shoulder pain after the fall also.
[2016-06-15] MEDS: oxyCODONE-APAP 7.5-325MG 1 EACH TAB PO PRN ×2 (02:57→09:16)
[2016-06-15] MEDS: ONDANSETRON 4 MG/2 ML VIAL IVP PRN ×2 (02:58→09:17)
[2016-06-15] MEDS: SODIUM CHLORIDE 0.9% 1,000 ML IV SCH (04:19)
[2016-06-15] MEDS: BACLOFEN 10 MG TAB PO PRN (05:02)
[2016-06-15] MEDS ORDERED: LORazepam 2 MG/ML SYRINGE IV PRN (08:21)
[2016-06-15 08:29] VITALS: BP 137/78; PULSE 59; RESP 17; TEMP 98
[2016-06-15] MEDS: amLODIPine 10 MG TAB PO SCH (09:17)
[2016-06-15] MEDS: ASPIRIN 325 MG TAB PO SCH (09:17)
[2016-06-15] MEDS: ATORVASTATIN 80 MG TAB PO SCH (09:17)
[2016-06-15] MEDS: GABAPENTIN 400 MG CAP PO SCH (09:17)
[2016-06-15] MEDS: LISINOPRIL 20 MG TAB PO SCH (09:17)
[2016-06-15] MEDS: DULoxetine HCL 30 MG CAPSULE.DR PO SCH (09:18)
[2016-06-15] MEDS: HYDROCHLOROTHIAZIDE 12.5 MG CAP PO SCH (09:18)
[2016-06-15 10:09] LABS: Basophils % (A) 0 %; CH 30.7; CHCM 33.8; Eosinophils # (A) 0.2 k/uL (0-0.7); Eosinophils % (A) 2 %; HCT 35.1 % (34.0-46.0); HGB 12.4 gm/dL (11.4-16.0); Luc # (Auto) 0.23; Luc % (Auto) 3; Lymphocytes # (A) 1.9 k/uL (1.0-4.8); Lymphocytes % (A) 21 %; MCH 32.3 pg (25.0-35.0); MCHC 35.5 g/dL (31.0-37.0); Mean Platelet Volume 8.4; Monocytes # (A) 0.8 k/uL (0-1.0); Monocytes % (A) 8 %; Neutrophils # (A) 5.9 k/uL (1.3-7.7); Neutrophils % (A) 65 %; RBC 3.85 m/uL (3.80-5.40); RDW 12.6 % (11.5-15.5); WBC 9.1 k/uL (3.8-10.6); WBC (Perox) 9.01
[2016-06-15 10:11] LABS: MCV 91.1 fL (80.0-100.0)
[2016-06-15 10:18] LABS: INR 2.3 (<1.1); Prothrombin Time 22.5 sec (9.0-12.0)
[2016-06-15 10:36] LABS: Anion Gap 10 mmol/L; Blood Urea Nitrogen 22 mg/dL (7-17); Calcium 9.1 mg/dL (8.4-10.2); Carbon Dioxide 24 mmol/L (22-30); Chloride 105 mmol/L (98-107); Cholesterol 124 mg/dL (<200); Glucose 94 mg/dL (74-99); HDL Cholesterol 39 mg/dL (40-60); Non-African American GFR(MDRD) 58 (>60 ml/min/1.73 sqM); Sodium 139 mmol/L (137-145); Triglycerides 119 mg/dL (<150)
[2016-06-15 10:41] LABS: Potassium 3.9 mmol/L (3.5-5.1)
--- NOTE | 2016-06-15 11:47 | MR ---
EXAMINATION TYPE: MR brain wo contrast stat DATE OF EXAM: 06/15/2016 10:42 AM COMPARISON: CT brain 06/13/2016, MRI 02/03/2016, MRA 06/04/2016 HISTORY: TIA T1-weighted sagittal, T2, FLAIR, and diffusion axial, and T2 coronal coronal views of the brain are s ubmitted. There is no evidence of acute ischemia. The ventricles, basal cisterns, and sulci overlying the conv exities are consistent with the patient's age. There is no mass effect. Craniocervical junction maintained. Sella turcica has a normal appearance. No cerebellopontine angle mass. Changes of chronic sinusitis and mastoiditis noted. Areas of abnormal signal alteration within the right temporal, frontal and parietal lobes are again n oted and appear progressed from the previous exam of 2016 compatible with previous infarction. There is no diffusion restriction to suggest acute ischemia. There is blooming artifact seen within the cor rip suggestive of previous hemorrhagic stroke. Ex vacuo dilation of the right lateral ventricle. A few scattered areas of abnormal signal are seen in the white matter of the cerebral hemispheres jamel aterally with all measuring less than 5 mm. There is a focal area of abnormal signal involving the right cerebral peduncle within the midbrain. T here is no diffusion restriction. Extends into the keena. Suggestive of remote ischemic change. This a ppears more prominent than on previous MRI of 2016. There is a diminutive MCA and ICA caliber on the right relative to the left. This is compatible with the MRI a recently which described M1 segment right MCA occlusion. IMPRESSION: 1. No acute intracranial process 2. Findings compatible with large area of previous infarction involving the right cerebral hemisphere . 3. Absence of the normal signal voids within the distal ICA, left SONAL and right MCA may be on the bas is of occlusion or thrombotic disease. Findings have been described recently with MRA and CTA. 2. Remote brainstem infarct involving the right midbrain and keena which is progressed from the MRI of 2016
[2016-06-15] MEDS: FOLIC ACID 1 MG TAB PO SCH (12:29)
--- NOTE | 2016-06-15 12:55 | CDI ---
In responding to this query, please exercise your independent professional judgment. The [facility] Coding Staff and Clinical Documentation Specialists appreciate your assistance in clarifying documentation, maintaining compliance with coding guidelines, accurately documenting patients condition and capturing severity of illness. The fact that a question is asked does not imply that any particular answer is desired or expected. Communication forms are a method of clarifying documentation and are not made part of the Legal Health Record. Thank you in advance for your clarification. Last Revision, May 2015 Krupa Martinez [address] [facility] [place] [address] Documentation Clarification Form Date: 06/15/2016 12:14:00 PM From: Maritzatanner Valencia Admit Date: 06/13/2016 5:02:00 PM Patient Name: Casi Snider Visit Number: [id number] Discharge Date: Dr. Mingo Hurst/Martha Barkley [employer]CH[employer]IC-C TIA is documented as a diagnosis in the consult and progress notes Patient history/risk factors: CVA with left sided weakness, Fibromyalgia Clinical indicators: ED more confused, on exam noted difficulty following commands, verbal response noted as confused conversation. Vital Signs: 124/74 79 18 97.6 Loop recorder states she had 2 pauses -one 3 second asymptomatic One 8 seconds where she felt briefly dizzy, headaches, left hand pain and sometimes hand curls. Labs: Drug screen: detected opiate, oxycodone, benzodiazepines and THC Brain MRI; No acute intracranial process. Findings compatible with large area of previous infarction involving the right MCA may be on the basis of occlusion or thrombotic disease. Remote brainstem infarct involving the right midbrain and keena which progressed from the MRI of 2016 CT Angio: Generalized small caliber poor flow in the [place] with suspected stenosis of the previously Visualized patent right posterior communicating artery. Consideration for small to medium vessel vasculitis. Treatment: Advanced Neurovascular assessment per protocol ASA PO Coumadin PO Monitor Labs PT/OT In your professional opinion, please further specify underlying etiology of the transient ischemic attack: Carotid Sinus Syncope Carotid Stenosis Ischemic Stroke (if know specify cause, specific vessel/location, and laterality): Sequelae of Cerebrovascular Disease (specify Type of Cerebrovascular Disease ) Vertebo-Basilar Artery Syndrome Other (please specify) Etiology unknown or Unable to determine Please document in your progress notes in order to capture severity of illness and risk of mortality. Include clinical findings that support your diagnosis. FYI: Press F11 to launch patient chart Place X here if this finding has no clinical significance, is not applicable or if you are not able to provide any additional documentation. MARY ANN
--- NOTE | 2016-06-15 16:45 | P.PN ---
Subjective Principal diagnosis: Patient is a pleasant 35-year-old female who is being followed by the neurology service for TIA. Patient does have history of CVA a year ago with residual left-sided weakness. Patient states she feels she is back to baseline. At the time of my evaluation, patient is up in bed and is getting ready for discharge. Patient appears to be in no acute distress. Objective - Vital Signs Vital signs: Vital Signs Temp 98.0 F 06/15/16 07:00 Pulse 59 L 06/15/16 09:00 Resp 17 06/15/16 09:00 BP 137/78 06/15/16 07:00 Pulse Ox 99 06/15/16 07:00 Intake & Output 06/14/16 06/15/16 06/15/16 18:59 06:59 18:59 Intake Total 600 600 Balance 600 600 Weight 98.9 kg Intake: Oral 600 600 Other: Voiding Method Toilet Toilet Toilet # Voids 3 1 2 - Exam PHYSICAL EXAM: GENERAL APPEARANCE: Patient is a well-developed, female who appears to be in no acute distress. HEENT: Normocephalic, atraumatic, no facial asymmetry is seen. Neck is supple with no masses felt. CARDIOVASCULAR: Regular rate and rhythm. ABDOMEN: Nontender, nondistended. EXTREMITIES: Show no edema or clubbing. NEUROLOGICAL EXAM: She is awake, alert, and oriented 3. Speech and language are normal. Left upper extremity strength is 4/5 and 5-/5 in the left lower extremity. Mild contracture of the left hand is noted. Strength is full in the right upper and lower extremity. No sensory deficit to light touch in all 4 extremities. No seizures or tremors noted. - Labs CBC & Chem 7: 06/15/16 10:00 06/15/16 10:00 Labs: Abnormal Lab Results - Last 24 Hours (Table) 06/15/16 06/15/16 Range/Units 10:00 10:00 PT 22.5 H (9.0-12.0) sec BUN 22 H (7-17) mg/dL Creatinine 1.08 H (0.52-1.04) mg/dL HDL Cholesterol 39 L (40-60) mg/dL Assessment and Plan (1) Transient cerebral ischemia Status: Acute (2) Left-sided weakness Status: Acute Plan: Recommendations: It does appear patient had transient ischemic attack with increased left-sided weakness. Symptoms have improved and appeared to be back at baseline. As previously mentioned, patient CT showed old right frontoparietal infarct with periventricular white matter ischemic changes. Patient is on aspirin and Coumadin in the home setting. Recommend continuing this therapy. CTA of the head and neck reveals consideration for small to medium vessel vasculitis. As you recall, CODY and rheumatology panel were negative. ESR was elevated at 22. CRP was high at 17. UA was negative for proteinuria and hematuria. MRI of the brain showed remote brainstem infarct involving right midbrain and keena which is progressed from the MRI of 2016. Large area of previous infarction involving the right cerebral hemisphere is again demonstrated. I had ordered an ANCA which is pending. Her fasting lipid panel was within normal limits except for low HDL of 39. Serum homocysteine level is pending. EEG has not been done. I recommend physical therapy and occupational therapy to evaluate and treat. I recommend a rheumatology consult which can be done as an outpatient. Patient is stable for discharge from neurology standpoint. I will continue to follow with you on an as-needed basis. Further recommendations to follow. I performed an examination of the patient and discussed the management with the DRYWALL STRIPPER. I have reviewed the DRYWALL STRIPPER notes and agree with the findings and plan of care.
--- NOTE | 2016-06-16 07:40 | DS ---
DATE OF ADMISSION: 06/13/2016 DATE OF DISCHARGE: 06/15/2016 A 35-year-old admitted secondary to increased left-sided weakness. MRI did show old right cerebral hemispheric stroke and CT angio and MRI suspicious for medium and small vessel disease because of which there was suspicion of vasculitis, considering her age and multiple strokes in the past. Patient is already on Coumadin, therapeutic INR and aspirin. Neurology ordered some autoimmune workup. Results of which are still pending and neurologist is recommending rheumatologic followup and patient will be referred to sample prep technician. Although patient lives in [facility]. Depending on where she stays, the patient was asked to follow up with sample prep technician in about a week and see her primary care physician as well and patient still has some residual weakness on the left side which does not appear to be worse than before. Patient was seen and examined on the day of discharge. Vitals are stable. PHYSICAL EXAMINATION: GENERAL: The patient is alert and oriented x3, not in any acute distress. Well developed, well nourished. HEENT: Pupils are round and equally reacting to light. EOMI. No scleral icterus. No conjunctival pallor. Normocephalic, atraumatic. No pharyngeal erythema. No thyromegaly. CARDIOVASCULAR: S1 and S2 present. No murmurs, rubs, or gallops. PULMONARY: Chest is clear to auscultation, no wheezing or crackles. ABDOMEN: Soft, nontender, nondistended, normoactive bowel sounds. No palpable organomegaly. MUSCULOSKELETAL: No joint swelling or deformity. EXTREMITIES: No cyanosis, clubbing, or pedal edema. NEUROLOGICAL: As described in HPI. SKIN: No rashes. FINAL DIAGNOSES: 1. Possibility of acute stroke involving the right cerebral hemisphere and left side of the body. 2. Multiple strokes in the past, rule out vasculitis. 3. Fibromyalgia. 4. Marijuana use, counseling was provided. 5. Hypertension. 6. Peripheral neuropathy. Please refer to my depart summary for further details of discharge medication. DISCHARGE DIET: Cardiac. Hydrochlorothiazide will be discontinued because of mild renal dysfunction along with low blood pressures when she came in, which can actually cause strokes too. Because of these 2 reasons, I am actually discontinuing hydrochlorothiazide. Cardiac diet. Follow up with Dr. Adenike Bragg on the 22 of June at 10:30. Spent greater than 35 minutes in total discharge process.
[2016-06-16 14:15] LABS: C-ANCA <1:20 Titer (<1:20); P-ANCA <1:20 Titer (<1:20)
== END 2016-06-15 15:46 | disposition home or self-care (01) | DRG 64 ==
LOC: EC 12:10 → 6SEL 17:02 → 4MS4W 06-14 11:31
PROVIDERS: ADMIT Hospitalist; ATTEND Hospitalist
DX: I63.9 Cerebral infarction, unspecified (principal); G92 Toxic encephalopathy; I69.354 Hemiplegia and hemiparesis following cerebral infarction affecting left non-dominant side; G62.9 Polyneuropathy, unspecified; F12.90 Cannabis use, unspecified, uncomplicated; F41.9 Anxiety disorder, unspecified; I10 Essential (primary) hypertension; M79.7 Fibromyalgia; W06.XXXA Fall from bed, initial encounter; Z79.01 Long term (current) use of anticoagulants; Z79.82 Long term (current) use of aspirin; Z79.899 Other long term (current) drug therapy; Z82.49 Family history of ischemic heart disease and other diseases of the circulatory system
CPT/HCPCS: 36415; 70450; 70496; 70498; 70551; 71010; 72100; 80048; 80053; 80061; 80306; 81001; 82550; 82553; 83090; 84484; 85025; 85610; 85652; 85730; 86038; 86140; 86225; 86255; 86431; 93005; 96361; 96374; 96376; 99285

== ENCOUNTER → 2016-06-23 | Outpatient (CLI) | payer BC ==
--- NOTE | 2016-06-23 11:05 | US ---
EXAMINATION TYPE: US transvaginal DATE OF EXAM: 06/23/2016 10:51 AM COMPARISON: NONE CLINICAL HISTORY: R10.2 PELVIC PAIN. pt had an IUD placed yesterday morning, pt states pinching pain since when upright and walking TECHNIQUE: Transvaginal (TV) Date of LMP: dub, pt unsure EXAM MEASUREMENTS: Uterus: 6.5 x 3.3 x 3.5 cm Endometrial Stripe: 0.3 cm Right Ovary: not seen Left Ovary: 2.8 x 1.5 x 1.5 cm 1. Uterus: anteverted wnl 2. Endometrium: wnl, IUD appears appropriately placed with echogenic reflectors seen fundally 3. Right Ovary: not seen 4. Left Ovary: wnl 5. Bilateral Adnexa: wnl 6. Posterior cul-de-sac: no free fluid seen Results called to Jessika in the office at the time of the exam IMPRESSION: 1. IUD position. 2. Normal transvaginal ultrasound. 3. Limitation with nonvisualization of the right ovary
== END | disposition home or self-care (01) ==
LOC: RADUSWWP 10:28
PROVIDERS: ATTEND Obstetrics & Gynecology
DX: R10.2 Pelvic and perineal pain (principal); Z97.5 Presence of (intrauterine) contraceptive device
CPT/HCPCS: 76830

== ENCOUNTER → 2016-07-05 | Outpatient (CLI) | payer BC ==
--- NOTE | 2016-07-06 08:30 | CT ---
EXAMINATION TYPE: CT angio thoracic/abd aorta DATE OF EXAM: 07/05/2016 7:09 PM COMPARISON: NONE HISTORY: Repeated strokes about for possible arteritis. CT DLP: 1148 mGycm CONTRAST: CTA thoracic and abdominal aorta with 3-D reconstruction is performed without contrast and then follo wing the injection of 100 mL of Omnipaque 350. Contrast CTA of the thoracic and abdominal aorta was performed from the lung apex through the base of the pelvis. 3-D reconstruction imaging obtained at a separate workstation. CT Chest: THORACIC AORTA: There is ectasia of the ascending thoracic aorta at 3.8 cm AP dimension without disti nct aneurysm at this time. No dissection or mediastinal hematoma. No significant inflammatory change s identified to suggest arteritis. No atheromatous change identified. LUNGS: The lungs are clear and free of infiltrate or atelectasis. No pulmonary nodule or mass is det ected. No pleural effusion or CT evidence of interstitial lung disease. MEDIASTINUM: The heart is mildly enlarged. No evidence for mediastinal mass or adenopathy. HILAR STRUCTURES: No evidence for mass. No hilar adenopathy is appreciated. OTHER: No significant abnormality. CONTRAST CT ABDOMEN AND PELVIS ABDOMENAL AORTA: No evidence for abdominal aortic aneurysm. No dissection. Iliac vessels are symmet kamaljit and patent. No inflammatory process identified to suggest arteritis. Branch vessels including t he celiac, SMA, KARI and renal arteries are patent. LIVER/GB- No significant abnormality is seen. PANCREAS- No significant abnormality is seen. SPLEEN- No significant abnormality is seen. ADRENALS- No significant abnormality is seen. KIDNEYS/BLADDER- No significant abnormality is seen. BOWEL- No Significant abnormality GENITAL ORGANS: No gross abnormality seen. LYMPH NODES- No greater than 1cm abdominal or pelvic lymph nodes areappreciated. OSSEOUS STRUCTURES- No significant abnormality is seen. OTHER- No significant abnormality is seen. IMPRESSION- 1. No CT evidence to suggest arteritis. Ascending thoracic aortic ectasia. 2. Mild cardiomegaly.
== END | disposition home or self-care (01) ==
LOC: RADCTMAIN 18:12
PROVIDERS: ATTEND Internal Medicine Rheumatology
DX: I51.7 Cardiomegaly (principal); I77.6 Arteritis, unspecified
CPT/HCPCS: 75635; 71275; Q9967

== ENCOUNTER → 2016-11-08 | Outpatient (CLI) | payer BC ==
--- NOTE | 2016-11-08 21:25 | CONS ---
CONSULTATION REASON FOR CONSULTATION: Sleep apnea. This is a very interesting 36-year-old female patient, who has been diagnosed having recurrent CVAs and upon further investigation, the patient was diagnosed having moyamoya disease, which is a rare disease in which certain arteries of the brain are constricted and blood flow is blocked by constriction and also by thrombosis/blood clots. Based on this diagnosis, the patient has had multiple history of CVA and currently suffers from left-sided weakness. Her last CVA was in June 2016 for which the patient was hospitalized at [facility]. Currently the patient is having residual left-sided weakness related to a right frontoparietal infarct that was documented on a CT scan of the brain and MRI. The patient has been also having episodes of cardiac pause and a loop recorder was placed and the patient was found to have 2 pauses: One 3 seconds that was asymptomatic another one that was 8 seconds for which the patient felt briefly dizzy. For that reason, she was referred to me for evaluation of obstructive sleep apnea, knowing that the patient has also some anatomic features to suggest that. She has chronic migraines. She has snoring as reported by the father. No witnessed apneas. She wakes up tired during the day and she worries about her sleep and she has issues with concentration and memory and this could be related to her underlying neurologic disorder also. She goes to bed around 11:00 p.m. and wakes at 5:00 a.m. in the morning. Her current [place] score is at 5. She is obese with a BMI of 42.6. No sleepwalking or sleep talking. No restlessness of the lower extremities. No anxiety or panic attack. No grinding of the teeth. PAST MEDICAL HISTORY: 1. Moyamoya disease. 2. CVA x5 with residual left-sided weakness. 3. Migraines/tension headaches. 4. Obesity. 5. Hyperlipidemia. 6. Cardiac arrhythmia/bradyarrhythmia for which a loop recorder has been inserted. 7. Chronic generalized anxiety disorder. PAST SURGICAL HISTORY: Tonsillectomy, loop recorder insertion, GEORGE and EGD. DRUG ALLERGIES: Not known. OUTPATIENT MEDICATION LIST: Includes: 1. Zanaflex 4 mg 3 tablets at bedtime. 2. Aspirin 81 mg p.o. daily. 3. Vitamin B12 injected once per month. 4. Verapamil 120 mg p.o. daily. 5. Folic acid 1 mg daily. 6. Neurontin 600 mg t.i.d. 7. Lipitor 80 mg p.o. daily. 8. Lisinopril 20 mg p.o. daily. 9. Vitamin D2. 10.Klonopin 1 mg at bedtime. SOCIAL HISTORY: Nonsmoker. No history of alcohol. No history of IV drugs. FAMILY HISTORY: Father is known to me and he has been diagnosed having obstructive sleep apnea. REVIEW OF SYSTEMS: A 12-point review of system was done and positive findings are all mentioned above in history of present illness. at this point. BP is 163/72, pulse 76, respiratory rate 16, temperature 97.9, saturation 98% on room air. Weight is 233, height is 5 feet 2 inches and neck size 40-1/2 inches. The patient appears calm, comfortable. HEENT: Negative for JVD, goiter or neck mass. There is facial asymmetry with left facial weakness. LUNGS: Diminished breath sounds bilaterally, otherwise clear. HEART: Sounds are regular rate and rhythm. Normal S1, S2. No S3, S4. No murmurs. ABDOMEN: Soft, nontender. No organomegaly. EXTREMITIES: No edema. No cyanosis. No clubbing. Neurologically, left-sided hemiplegia related to CVA/weakness. IMPRESSION: 1. Obstructive sleep apnea suspected, clinically under investigation. 2. Cardiac pauses as recorded by a loop recorder. Rule out underlying obstructive sleep apnea contributing to the cardiac bradyarrhythmias. 3. Moyamoya disease with recurrent stroke and the patient had a right hemispheric stroke causing left-sided body weakness. 4. Migraines/tension headaches. 5. Fibromyalgia. 6. Hypertension. 7. Peripheral neuropathy. 8. History of marijuana use. 9. Hyperlipidemia. 10.Obesity with a body mass index of 42.6. PLAN: 1. Proceed with a screening polysomnogram, looking for any significant sleep breathing disorder (will be also looking for any cardiac arrhythmias or any nocturnal oxygen desaturation). 2. Encourage weight loss. 3. Cardiology to monitor the events on the cardiac loop recorder. 4. The patient is scheduled to have a neurosurgical vascular intervention, some sort of a vascular bypass surgery regarding her moyamoya disease. I think the procedure may include a vascular bypass between the temporal artery and the middle cerebral artery. This will be done within the next few months at [facility]. Meanwhile, will evaluate deliver this patient's sleep with condition and rule out any obstructive sleep apnea, make further recommendations if treatment is needed. MMTIERNEYL / IJN: [id number] /
== END ==
LOC: SLEEP 15:33
PROVIDERS: ATTEND Internal Medicine Critical Care Medicine
DX: I67.5 Moyamoya disease (principal); G43.909 Migraine, unspecified, not intractable, without status migrainosus; M79.7 Fibromyalgia; I10 Essential (primary) hypertension; G62.9 Polyneuropathy, unspecified; E78.5 Hyperlipidemia, unspecified; E66.9 Obesity, unspecified; Z68.41 Body mass index [BMI] 40.0-44.9, adult; Z79.899 Other long term (current) drug therapy; Z79.82 Long term (current) use of aspirin
CPT/HCPCS: 99211

== ENCOUNTER 2016-11-26 17:35 | Emergency (ER) | payer BC ==
[2016-11-26 17:44] VITALS: RESP 18
[2016-11-26] MEDS ORDERED: SODIUM CHLORIDE 0.9% 1,000 ML IV STA ×2 (17:45→19:14)
[2016-11-26] MEDS ORDERED: MORPHINE SULFATE 4 MG/ML SYRINGE IV STA (17:45)
--- NOTE | 2016-11-26 18:00 | ED ---
General Adult HPI - General Chief complaint: Neuro Symptoms/Deficit Stated complaint: poss stroke Time Seen by Provider: 11/26/16 17:36 Source: patient, EMS, RN notes reviewed, old records reviewed Mode of arrival: EMS Limitations: no limitations - History of Present Illness Initial comments: This is a 36-year-old female here for evaluation. Patient was unsafe for evaluation regarding her neurological complaints. Headache. Patient is Given neurological history of [place] disease. Patient does have recent surgery at [facility] for this issue. Patient states since her surgery symptoms have been controlled but recently started headache today. Patient denies any significant new neurological deficit. - Related Data Home Medications Medication Instructions Recorded Confirmed Atorvastatin [Lipitor] 80 mg PO HS 02/02/16 11/26/16 Lisinopril [Zestril] 20 mg PO BID 02/02/16 11/26/16 Cyanocobalamin [Vitamin B-12 1,000 mcg SQ Q30D 06/07/16 11/26/16 Injection] Folic Acid 1 mg PO DAILY 06/07/16 11/26/16 tiZANidine HCL [Zanaflex] 4 mg PO TID 06/13/16 11/26/16 Acetaminophen Tab [Tylenol Tab] 500 mg PO Q4-6H PRN 11/26/16 11/26/16 Amitriptyline HCl 50 mg PO HS 11/26/16 11/26/16 Aspirin EC [Ecotrin Low Dose] 81 mg PO DAILY 11/26/16 11/26/16 Butalb/Acetaminophen/Caffeine 1 cap PO Q4-6H PRN 11/26/16 11/26/16 [Esgic 50-325-40 Capsule] Citalopram Hydrobromide [CeleXA] 10 mg PO DAILY 11/26/16 11/26/16 Docusate [Colace] 100 mg PO BID PRN 11/26/16 11/26/16 Ergocalciferol (Vitamin D2) 50,000 unit PO MUNIZ 11/26/16 11/26/16 [Vitamin D2] Gabapentin 600 mg PO TID 11/26/16 11/26/16 Nuedexta 1 cap PO DAILY 11/26/16 11/26/16 Verapamil HCl [Verapamil ER] 180 mg PO DAILY 11/26/16 11/26/16 clonazePAM [KlonoPIN] 1 mg PO HS 11/26/16 11/26/16 oxyCODONE HCL [Oxyir] 5 - 10 mg PO Q4-6H PRN 11/26/16 11/26/16 Allergies Allergy/AdvReac Type Severity Reaction Status Date / Time pregabalin [From Lyrica] Allergy Swelling Verified 11/26/16 18:19 Review of Systems ROS Statement: Those systems with pertinent positive or pertinent negative responses have been documented in the HPI. ROS Other: All systems not noted in ROS Statement are negative. Past Medical History Past Medical History: CVA/TIA, Fibromyalgia Additional Past Medical History / Comment(s): Pt states she has had 4 previous CVAs with L sided weakness, she currently has a loop recorder in place and states she has had 2 pauses-one 3 seconds and was asymptomatic and one 8 seconds where she felt briefly dizzy, headaches, L hand pain and sometimes hand curls. History of Any Multi-Drug Resistant Organisms: None Reported Past Surgical History: Tonsillectomy Additional Past Surgical History / Comment(s): 09/2015 loop recorder, GEORGE, EGD, EDAS Past Anesthesia/Blood Transfusion Reactions: No Reported Reaction Past Psychological History: Anxiety Smoking Status: Never smoker Past Alcohol Use History: None Reported Past Drug Use History: None Reported - Past Family History Father Family Medical History: Coronary Artery Disease (CAD), Diabetes Mellitus Additional Family Medical History / Comment(s): Father has a stent that was placed when he was 67yrs old. Mother Family Medical History: Cancer, Hypertension Additional Family Medical History / Comment(s): Mother has had breast cancer and melanoma. General Exam - General Exam Comments Initial Comments: Significant NIH score including left-sided severe weakness worse than baseline, contractures Limitations: no limitations General appearance: alert, in no apparent distress Head exam: Present: atraumatic, normocephalic, normal inspection Eye exam: Present: normal appearance, PERRL, EOMI. Absent: scleral icterus, conjunctival injection, periorbital swelling ENT exam: Present: normal exam, mucous membranes moist Neck exam: Present: normal inspection. Absent: tenderness, meningismus, lymphadenopathy Respiratory exam: Present: normal lung sounds bilaterally. Absent: respiratory distress, wheezes, rales, rhonchi, stridor Cardiovascular Exam: Present: regular rate, normal rhythm, normal heart sounds. Absent: systolic murmur, diastolic murmur, rubs, gallop, clicks GI/Abdominal exam: Present: soft, normal bowel sounds. Absent: distended, tenderness, guarding, rebound, rigid Extremities exam: Present: normal inspection, full ROM, normal capillary refill. Absent: tenderness, pedal edema, joint swelling, calf tenderness Back exam: Present: normal inspection Neurological exam: Present: alert, oriented X3, CN II-XII intact Psychiatric exam: Present: normal affect, normal mood Skin exam: Present: warm, dry, intact, normal color. Absent: rash Course Vital Signs 11/26/16 11/26/16 11/26/16 17:39 18:03 18:13 Temperature 98.6 F Pulse Rate 61 86 80 Respiratory 18 18 18 Rate Blood Pressure 171/79 124/58 119/60 O2 Sat by Pulse 100 97 98 Oximetry 11/26/16 11/26/16 18:23 18:44 Temperature Pulse Rate 87 86 Respiratory 18 18 Rate Blood Pressure 121/66 124/66 O2 Sat by Pulse 98 98 Oximetry - Reevaluation(s) Reevaluation #1: 11/26/16 19:19 Spoke with patient's neurosurgeon, patient's neurologic neurologic deficits are worse than her normal baseline EKG Findings - EKG Comments: EKG Findings:: EKG shows normal sinus rhythm rate of 85, NC 136, QRS 86, QTC 449 Medical Decision Making - Medical Decision Making 36 female ER for evaluation of weakness left-sided weakness increased neurological symptoms or complaints, positive headache. Patient will be transferred to [facility] her neurosurgeon is. Patient will be evaluated there by neurosurgery - Radiology Data Radiology results: report reviewed (CT brain is negative for acute disease), image reviewed Disposition Clinical Impression: Cerebrovascular accident Disposition: OTHER INSTITUTION NOT DEFINED Condition: Fair Referrals: Amy Harper MD [Primary Care Provider] - 1-2 days - Out of Hospital Transfer - Req. Specs Out of Hospital Transfer - Requested Specifics: Other Emergency Center ([place] )
--- NOTE | 2016-11-26 18:23 | CT ---
EXAMINATION TYPE: CT brain wo con DATE OF EXAM: 11/26/2016 COMPARISON: 06/13/2016 HISTORY: Post OP brain surgery 11/23/16. Left sided weakness CT DLP: 1269 mGycm. Automated Exposure Control for Dose Reduction was Utilized. TECHNIQUE: CT scan of the head is performed without contrast. FINDINGS: There is old right temporal craniotomy defect. There is a 2 x 0.8 cm area of high attenua tion at the right temporal lobe convexity adjacent to the craniotomy consistent with chronic epidural hematoma. There is no midline shift. There is some enlargement of the right lateral ventricle. There is a large area of patchy hypodensity in the right posterior frontal lobe and right anterior tempora l lobe consistent with old infarct. CONCLUSION: Right temporal craniotomy defect. Large area of encephalomalacia consistent with old infarct in the r ight middle cerebral artery distribution that is unchanged compared to 06/13/2016. There is a small ep idural hematoma at the craniotomy site. No mass effect. Hematoma and craniotomy are new compared to o ld exam.
[2016-11-26] MEDS ORDERED: RX INFO: IV CONTRAST WAS GIVEN 1 EACH MISC MISCELLANE PRN (19:13)
[2016-11-26] MEDS ORDERED: SODIUM CHLORIDE 0.9% 500 ML IV STA (19:14)
[2016-11-26 19:33] VITALS: TEMP 99.3
[2016-11-26 19:46] LABS: Basophils % (A) 0 %; CH 30.4; CHCM 32.1; Eosinophils # (A) 0.1 k/uL (0-0.7); Eosinophils % (A) 1 %; HCT 32.8 % (34.0-46.0); HDW 2.27; HGB 10.9 gm/dL (11.4-16.0); Luc % (Auto) 2; Lymphocytes # (A) 0.8 k/uL (1.0-4.8); Lymphocytes % (A) 6 %; MCH 31.7 pg (25.0-35.0); MCHC 33.3 g/dL (31.0-37.0); MCV 95.2 fL (80.0-100.0); Mean Platelet Volume 8.4; Monocytes # (A) 0.7 k/uL (0-1.0); Monocytes % (A) 5 %; Neutrophils # (A) 11.7 k/uL (1.3-7.7); Neutrophils % (A) 87 %; RBC 3.45 m/uL (3.80-5.40); RDW 13.4 % (11.5-15.5); WBC 13.5 k/uL (3.8-10.6); WBC (Perox) 13.56
[2016-11-26 20:01] LABS: Prothrombin Time 10.2 sec (9.0-12.0)
[2016-11-26 20:05] VITALS: BP 107/71; PULSE 87
[2016-11-26 20:10] LABS: Partial Thromboplastin Time 20.8 sec (22.0-30.0)
[2016-11-26 20:26] LABS: Creatine Kinase 289 U/L (30-135)
[2016-11-26 20:27] LABS: ALT 18 U/L (9-52); AST 24 U/L (14-36); Alkaline Phosphatase 62 U/L (38-126); Anion Gap 15 mmol/L; Blood Urea Nitrogen 13 mg/dL (7-17); Calcium 8.7 mg/dL (8.4-10.2); Carbon Dioxide 20 mmol/L (22-30); Chloride 103 mmol/L (98-107); Glucose 76 mg/dL (74-99); Magnesium 1.8 mg/dL (1.6-2.3); Non-African American GFR(MDRD) >60 (>60 ml/min/1.73 sqM); Phosphorous 4.2 mg/dL (2.5-4.5); Potassium 4.7 mmol/L (3.5-5.1); Sodium 138 mmol/L (137-145); Total Bilirubin 0.3 mg/dL (0.2-1.3); Total Protein 6.6 g/dL (6.3-8.2)
[2016-11-26 20:38] LABS: Troponin I <0.012 ng/mL (0.000-0.034)
[2016-11-26 20:43] LABS: Creatine Kinase MB 3.4 ng/mL (0.0-2.4)
[2016-11-26] MEDS ORDERED: ONDANSETRON 4 MG/2 ML VIAL IVP STA (20:57)
== END 2016-11-26 21:20 | disposition short-term general hospital (02) ==
LOC: SUPCPDRO 17:35 → EC 17:35
DX: I63.9 Cerebral infarction, unspecified (principal); R29.711 NIHSS score 11; M79.7 Fibromyalgia; F41.9 Anxiety disorder, unspecified; Z79.82 Long term (current) use of aspirin; Z79.899 Other long term (current) drug therapy; Z88.8 Allergy status to other drugs, medicaments and biological substances; Z98.890 Other specified postprocedural states
CPT/HCPCS: 36415; 93005; 80053; 82550; 82553; 83735; 84100; 84484; 85025; 85610; 85730; 70450; 99291; 96374; 96375; 96361 ×3; J2270; J2405

== ENCOUNTER → 2017-06-02 | Outpatient (CLI) | payer BC ==
[2017-06-02 17:32] LABS: Anion Gap 14 mmol/L; Blood Urea Nitrogen 17 mg/dL (7-17); Carbon Dioxide 23 mmol/L (22-30); Chloride 105 mmol/L (98-107); Glucose 91 mg/dL (74-99); Potassium 4.1 mmol/L (3.5-5.1); Sodium 142 mmol/L (137-145)
--- NOTE | 2017-06-02 23:31 | MR ---
EXAMINATION TYPE: MR thoracic spine wo/w con DATE OF EXAM: 06/02/2017 COMPARISON: NONE HISTORY: Davon leg weakness x 3 months CONTRAST: Standard multiplanar, multisequence MRI departmental protocol utilizing 11 mL intravenous Gadavist ga dolinium contrast. FINDINGS: The cervical and thoracic vertebra have normal alignment. Disc spaces are fairly normal. Th oracic spinal cord has normal signal pattern. There is no evidence of edema. There is no spinal steno sis. See no evidence of a mass of the thoracic spinal cord. I see no sign of thoracic disc herniation . There is no evidence of focal bone destruction. Contrast images show no pathologic enhancement. The re is no sign of thoracic paraspinal mass. The contrast images show no pathologic enhancement. The th oracic neural foramina appear normal. IMPRESSION: Negative MR scan of the thoracic spine. No evidence of demyelinating disease.
== END | disposition home or self-care (01) ==
LOC: RADMRIMAIN 16:46
PROVIDERS: ATTEND Psychiatry & Neurology Vascular Neurology
DX: R53.1 Weakness (principal); I15.8 Other secondary hypertension; Z88.1 Allergy status to other antibiotic agents
CPT/HCPCS: 80048; 72157; 36415; A9581

== ENCOUNTER → 2017-07-03 | Outpatient (CLI) | payer BC | LOC: RADMRIMAIN 19:40 | DX: Z53.9 Procedure and treatment not carried out, unspecified reason (principal) ==

== ENCOUNTER → 2017-07-20 | Outpatient (CLI) | payer BC ==
--- NOTE | 2017-07-21 13:02 | MR ---
EXAMINATION TYPE: MR dupree/travis wo con DATE OF EXAM: 07/20/2017 COMPARISON: NONE HISTORY: Davon leg/LUE weakness, hx patel patel strokes TECHNIQUE: T1 and T2 axial and sagittal images of the lumbar spine are submitted. FINDINGS: There is no abnormal signal seen within the visualized spinal cord or paraspinal soft tissu es. At L1-2 there is no disc herniation or canal stenosis. No foraminal encroachment vertebral body heman gioma of L2. At L2-3 there is no disc herniation or degenerative disc disease. No foraminal encroachment. No Canal stenosis. At L3-4 there is very mild hypertrophic change of the facets. No disc herniation, canal stenosis, or foraminal encroachment. No degenerative disc disease. At L4-5 there is mild hypertrophy of the facets and ligamentum flavum. Minimal central and right para central disc bulging but no evidence of canal stenosis or foraminal encroachment. At L5-S1 there is mild disc desiccation with more advanced facet arthropathy. No spondylolisthesis. N eural foramina patent. No canal stenosis or disc herniation. Early sclerosis of the pars noted bilate rally which can lead to pars defects and spondylolysis. IMPRESSION: 1. Multilevel facet arthropathy most marked at L5-S1 but no evidence of disc herniation or canal sten osis at any of the visualized levels. Neural foramina remain patent. 2. Minimal disc bulging L4-L5 but no canal stenosis. EXAMINATION TYPE: MR dumas wo con DATE OF EXAM: 07/20/2017 COMPARISON: NONE HISTORY: Advon leg/LUE weakness, hx patel patel strokes TECHNIQUE: T1 sagittal and coronal, T2 sagittal, and gradient echo axial views of the cervical spine are submitted. FINDINGS: The cranial cervical junction is preserved. There is no abnormal signal seen within the sp inal cord or paraspinal soft tissues. Sagittal images suggest chronic sinusitis. At C2-3 there is no disc herniation or canal stenosis. No foraminal encroachment. At C3-4 there is no disc herniation or canal stenosis. No foraminal encroachment. At C4-5 there is no disc herniation or canal stenosis. No foraminal encroachment. At C5-6 there is no disc herniation or canal stenosis. No foraminal encroachment. At C6-7 there is no disc herniation or canal stenosis. No foraminal encroachment. At C7-T1 there is no disc herniation or canal stenosis. No foraminal encroachment. IMPRESSION: 1. No disc herniation, canal stenosis or foraminal encroachment at any of the visualized levels.
== END ==
LOC: RADMRIMAIN 19:03
PROVIDERS: ATTEND Psychiatry & Neurology Vascular Neurology
DX: M51.26 Other intervertebral disc displacement, lumbar region (principal); M46.97 Unspecified inflammatory spondylopathy, lumbosacral region
CPT/HCPCS: 72141; 72148

== ENCOUNTER 2017-07-21 15:26 | Emergency (ER) | payer BC ==
[2017-07-21] MEDS ORDERED: LORazepam 2 MG/ML INJ IV STA (15:54)
[2017-07-21] MEDS ORDERED: SODIUM CHLORIDE 0.9% 1,000 ML IV STA (15:54)
[2017-07-21] MEDS ORDERED: RX INFO: IV CONTRAST WAS GIVEN 1 EACH MISC MISCELLANE PRN (15:54)
--- NOTE | 2017-07-21 15:55 | ED ---
General Adult HPI - General Chief complaint: Anxiety Stated complaint: anxiety Time Seen by Provider: 07/21/17 15:41 Source: patient, RN notes reviewed, old records reviewed Mode of arrival: ambulatory Limitations: no limitations - History of Present Illness Initial comments: This is a 37-year-old female to the ER for evaluation of possible CVA. Patient states she's had anxiety and stress since last night receiving MRI of her upper back and thoracic spine. States she had some increased anxiety throat the day, she called her who noticed that she had some significantly slurred speech he came home from work and her speech continued to be slurred. He states she does get slurred speech occasionally under stress, the patient does admit to having stress currently. She has mild headache which she always has mild left arm pain which she always has as well as left arm weakness left-sided facial droop and slurred speech - Related Data Home Medications Medication Instructions Recorded Confirmed Folic Acid 1 mg PO DAILY 06/07/16 07/21/17 tiZANidine HCL [Zanaflex] 12 mg PO HS 06/13/16 07/21/17 Aspirin EC [Ecotrin Low Dose] 81 mg PO DAILY 11/26/16 07/21/17 Ergocalciferol (Vitamin D2) 50,000 unit PO Q7D 11/26/16 07/21/17 [Vitamin D2] Gabapentin 600 mg PO TID 11/26/16 07/21/17 Citalopram Hydrobromide [CeleXA] 20 mg PO DAILY 07/21/17 07/21/17 Cyanocobalamin (Vitamin B-12) 1,000 mcg PO DAILY 07/21/17 07/21/17 [Vitamin B-12] Furosemide [Lasix] 40 mg PO DAILY 07/21/17 07/21/17 Losartan/Hydrochlorothiazide 1 tab PO DAILY 07/21/17 07/21/17 [Losartan-Hctz 100-12.5 mg Tab] Potassium Chloride [Klor-Con 20] 20 meq PO DAILY 07/21/17 07/21/17 Verapamil HCl [Verapamil ER] 180 mg PO DAILY 07/21/17 07/21/17 Allergies Allergy/AdvReac Type Severity Reaction Status Date / Time pregabalin [From Lyrica] Allergy Swelling Verified 07/21/17 15:42 Review of Systems ROS Statement: Those systems with pertinent positive or pertinent negative responses have been documented in the HPI. ROS Other: All systems not noted in ROS Statement are negative. Past Medical History Past Medical History: CVA/TIA, Fibromyalgia Additional Past Medical History / Comment(s): Pt states she has had 4 previous CVAs with L sided weakness, she currently has a loop recorder in place and states she has had 2 pauses-one 3 seconds and was asymptomatic and one 8 seconds where she felt briefly dizzy, headaches, L hand pain and sometimes hand curls. History of Any Multi-Drug Resistant Organisms: None Reported Past Surgical History: Tonsillectomy Additional Past Surgical History / Comment(s): 09/2015 loop recorder, GEORGE, EGD, EDAS, craniotomy Past Anesthesia/Blood Transfusion Reactions: No Reported Reaction Past Psychological History: Anxiety Smoking Status: Never smoker Past Alcohol Use History: None Reported Past Drug Use History: None Reported - Past Family History Father Family Medical History: Coronary Artery Disease (CAD), Diabetes Mellitus Additional Family Medical History / Comment(s): Father has a stent that was placed when he was 67yrs old. Mother Family Medical History: Cancer, Hypertension Additional Family Medical History / Comment(s): Mother has had breast cancer and melanoma. General Exam - General Exam Comments Initial Comments: Left facial droop, who left arm weakness, these are chronic neurological symptoms, NIH 5 Limitations: no limitations General appearance: alert, in no apparent distress Head exam: Present: atraumatic, normocephalic, normal inspection Eye exam: Present: normal appearance, PERRL, EOMI. Absent: scleral icterus, conjunctival injection, periorbital swelling ENT exam: Present: normal exam, mucous membranes moist Neck exam: Present: normal inspection. Absent: tenderness, meningismus, lymphadenopathy Respiratory exam: Present: normal lung sounds bilaterally. Absent: respiratory distress, wheezes, rales, rhonchi, stridor Cardiovascular Exam: Present: regular rate, normal rhythm, normal heart sounds. Absent: systolic murmur, diastolic murmur, rubs, gallop, clicks GI/Abdominal exam: Present: soft, normal bowel sounds. Absent: distended, tenderness, guarding, rebound, rigid Extremities exam: Present: normal inspection, full ROM, normal capillary refill. Absent: tenderness, pedal edema, joint swelling, calf tenderness Back exam: Present: normal inspection Neurological exam: Present: alert, oriented X3, CN II-XII intact Psychiatric exam: Present: normal affect, normal mood Skin exam: Present: warm, dry, intact, normal color. Absent: rash Course Vital Signs 07/21/17 07/21/17 07/21/17 15:28 16:52 17:37 Temperature 97.6 F Pulse Rate 56 L 62 70 Respiratory 18 16 16 Rate Blood Pressure 134/73 147/74 147/87 O2 Sat by Pulse 100 98 100 Oximetry - Reevaluation(s) Reevaluation #1: 07/21/17 16:49 Not a tpa candidate secondary to onset of symptoms 07/21/17 16:50 EKG Findings - EKG Comments: EKG Findings:: EKG shows normal sinus rhythm rate 61, [place] 152, QRS 90, QTc 465 Medical Decision Making - Medical Decision Making 37 female positive anxiety, CT negative no neurological symptoms found can be discharged home - Lab Data Result diagrams: 07/21/17 16:30 07/21/17 16:30 Lab Results 07/21/17 07/21/17 07/21/17 Range/Units 16:30 16:30 17:30 WBC 7.3 (3.8-10.6) k/uL RBC 4.30 (3.80-5.40) m/uL Hgb 12.4 (11.4-16.0) gm/dL Hct 37.4 (34.0-46.0) % MCV 86.9 (80.0-100.0) fL MCH 28.7 (25.0-35.0) pg MCHC 33.0 (31.0-37.0) g/dL RDW 12.9 (11.5-15.5) % Plt Count 311 (150-450) k/uL Neutrophils % 52 % Lymphocytes % 34 % Monocytes % 6 % Eosinophils % 4 % Basophils % 1 % Neutrophils # 3.8 (1.3-7.7) k/uL Lymphocytes # 2.5 (1.0-4.8) k/uL Monocytes # 0.4 (0-1.0) k/uL Eosinophils # 0.3 (0-0.7) k/uL Basophils # 0.1 (0-0.2) k/uL PT 10.0 (9.0-12.0) sec INR 1.0 (<1.2) APTT 24.3 (22.0-30.0) sec Sodium 140 (137-145) mmol/L Potassium 4.7 (3.5-5.1) mmol/L Chloride 107 (98-107) mmol/L Carbon Dioxide 21 L (22-30) mmol/L Anion Gap 12 mmol/L BUN 12 (7-17) mg/dL Creatinine 0.77 (0.52-1.04) mg/dL Est GFR (CKD-EPI)AfAm >90 (>60 ml/min/1.73 sqM) Est GFR (CKD-EPI)NonAf >90 (>60 ml/min/1.73 sqM) Glucose 81 (74-99) mg/dL Calcium 9.1 (8.4-10.2) mg/dL Total Bilirubin 0.4 (0.2-1.3) mg/dL AST 31 (14-36) U/L ALT 27 (9-52) U/L Alkaline Phosphatase 124 (38-126) U/L Total Creatine Kinase (30-135) U/L CK-MB (CK-2) (0.0-2.4) ng/mL CK-MB (CK-2) Rel Index Troponin I (0.000-0.034) ng/mL Total Protein 7.8 (6.3-8.2) g/dL Albumin 4.3 (3.5-5.0) g/dL 07/21/17 Range/Units 17:30 WBC (3.8-10.6) k/uL RBC (3.80-5.40) m/uL Hgb (11.4-16.0) gm/dL Hct (34.0-46.0) % MCV (80.0-100.0) fL MCH (25.0-35.0) pg MCHC (31.0-37.0) g/dL RDW (11.5-15.5) % Plt Count (150-450) k/uL Neutrophils % % Lymphocytes % % Monocytes % % Eosinophils % % Basophils % % Neutrophils # (1.3-7.7) k/uL Lymphocytes # (1.0-4.8) k/uL Monocytes # (0-1.0) k/uL Eosinophils # (0-0.7) k/uL Basophils # (0-0.2) k/uL PT (9.0-12.0) sec INR (<1.2) APTT (22.0-30.0) sec Sodium (137-145) mmol/L Potassium (3.5-5.1) mmol/L Chloride (98-107) mmol/L Carbon Dioxide (22-30) mmol/L Anion Gap mmol/L BUN (7-17) mg/dL Creatinine (0.52-1.04) mg/dL Est GFR (CKD-EPI)AfAm (>60 ml/min/1.73 sqM) Est GFR (CKD-EPI)NonAf (>60 ml/min/1.73 sqM) Glucose (74-99) mg/dL Calcium (8.4-10.2) mg/dL Total Bilirubin (0.2-1.3) mg/dL AST (14-36) U/L ALT (9-52) U/L Alkaline Phosphatase (38-126) U/L Total Creatine Kinase 77 (30-135) U/L CK-MB (CK-2) 1.1 (0.0-2.4) ng/mL CK-MB (CK-2) Rel Index 1.4 Troponin I <0.012 (0.000-0.034) ng/mL Total Protein (6.3-8.2) g/dL Albumin (3.5-5.0) g/dL - Radiology Data Radiology results: report reviewed (CT brain C-spine CTA brain negative for acute disease), image reviewed Disposition Clinical Impression: Panic attack, Acute anxiety Disposition: HOME SELF-CARE Instructions: Generalized Anxiety Disorder (ED) Is patient prescribed a controlled substance at d/c from ED?: No Referrals: Amy Harper MD [Primary Care Provider] - 1-2 days
[2017-07-21 16:46] LABS: Basophils # (A) 0.1 k/uL (0-0.2); Basophils % (A) 1 %; Eosinophils # (A) 0.3 k/uL (0-0.7); Eosinophils % (A) 4 %; HCT 37.4 % (34.0-46.0); HGB 12.4 gm/dL (11.4-16.0); Lymphocytes # (A) 2.5 k/uL (1.0-4.8); Lymphocytes % (A) 34 %; MCH 28.7 pg (25.0-35.0); MCV 86.9 fL (80.0-100.0); Mean Platelet Volume 7.6; Monocytes # (A) 0.4 k/uL (0-1.0); Monocytes % (A) 6 %; Neutrophils # (A) 3.8 k/uL (1.3-7.7); Neutrophils % (A) 52 %; Platelet Count 311 k/uL (150-450); RDW 12.9 % (11.5-15.5); WBC 7.3 k/uL (3.8-10.6)
[2017-07-21] MEDS: ONDANSETRON 4 MG/2 ML VIAL IVP STA ×2 (16:48→17:33)
[2017-07-21 16:53] VITALS: RESP 16
[2017-07-21 16:56] LABS: ALT 27 U/L (9-52); AST 31 U/L (14-36); Albumin 4.3 g/dL (3.5-5.0); Alkaline Phosphatase 124 U/L (38-126); Blood Urea Nitrogen 12 mg/dL (7-17); Calcium 9.1 mg/dL (8.4-10.2); Carbon Dioxide 21 mmol/L (22-30); Glucose 81 mg/dL (74-99); Potassium 4.7 mmol/L (3.5-5.1); Sodium 140 mmol/L (137-145); Total Bilirubin 0.4 mg/dL (0.2-1.3); Total Protein 7.8 g/dL (6.3-8.2)
[2017-07-21 17:19] LABS: Anion Gap 12 mmol/L; Chloride 107 mmol/L (98-107)
[2017-07-21 17:38] VITALS: PULSE 70
[2017-07-21 18:03] LABS: Partial Thromboplastin Time 24.3 sec (22.0-30.0)
[2017-07-21 18:06] LABS: Creatine Kinase 77 U/L (30-135)
--- NOTE | 2017-07-21 18:13 | CT ---
EXAMINATION TYPE: CT brain wo con for TPA DATE OF EXAM: 07/21/2017 COMPARISON: 11/26/2016 HISTORY: 37-year-old female neurologic deficits, Anxiety and dizziness TECHNIQUE: Examination was done in axial plane without intravenous contrast. Coronal and sagittal r econstructions performed. CT DLP: 792.2 mGycm Automated exposure control for dose reduction was used. FINDINGS: There is a right frontotemporal craniotomy flap with underlying right frontal lobe encephalomalacia e xtending to the frontoparietal junction superiorly. Secondary volume loss and ex vacuo enlargement of the right lateral ventricle. There is no evidence of acute intracranial hemorrhage, acute ischemic changes, mass, mass-effect, or extra-axial fluid collection. There is no effacement of cerebral sulci or basal subarachnoid cister ns. There is no hydrocephalus. There is no midline shift. Meneses-white matter distinction is preserv ed. Moderate mucosal thickening right maxillary sinus. Mastoid air cells are well pneumatized. Orbits and globes appear intact. IMPRESSION: 1. Old right frontotemporal craniotomy flap with underlying right frontal lobe encephalomalacia exten ding up to the frontoparietal junction. This could be secondary to prior trauma or infarct. Associate d volume loss in the right cerebral hemisphere. 2. No acute intracranial abnormality seen. 3. Moderate chronic right maxillary sinus disease.
[2017-07-21 18:19] LABS: Creatine Kinase MB 1.1 ng/mL (0.0-2.4); Troponin I <0.012 ng/mL (0.000-0.034)
--- NOTE | 2017-07-21 18:25 | CT ---
EXAMINATION TYPE: CT angio head neck DATE OF EXAM: 07/21/2017 COMPARISON: 06/13/2016 HISTORY: 37-year-old female with neurologic deficits. Anxiety and dizziness. TECHNIQUE: Contiguous axial scanning of the head and neck performed with IV Contrast, patient injecte d with 65 mL of Isovue 370. Coronal/sagittal MIP reconstructions performed. 3-D reconstructions gener ated on a dedicated independent workstation. CT DLP: 568.9 mGycm Automated exposure control for dose reduction was used. FINDINGS: NECK: Prominent motion artifacts at the aortic arch. There is bovine configuration to the aortic arch. The bilateral vertebral arteries are patent. The right common and internal carotid arteries are patent. The left common and internal carotid arteries are patent. The basilar and vertebral arteries are patent without significant stenosis or occlusion. HEAD: The bilateral supraclinoid internal carotid arteries remain diminutive in appearance. The remainder o f the right MCA and its branches are asymmetrically diminutive. The right posterior communicating art haylee is patent. The bilateral A1 segments of the anterior cerebral arteries are diminutive but the A2 and more distal segments appear relatively normal. The left-sided MCA branches appear to opacify appropriately. No aneurysmal change seen. COMBINED IMPRESSION: HEAD: 1. Relatively stable diminutive right anterior circulation beginning from the supraclinoid ICA, possi ameya congenital or sequela of prior vasculitis. 2. The left supraclinoid ICA and left A1 segment are also similarly diminutive. The left MCA branches , bilateral A2 and beyond, and vertebral/basilar arteries opacify appropriately. 3. No new stenosis or occlusion is seen as compared to 06/13/2016. NECK: 1. Patent carotid and vertebral arteries in the neck.
[2017-07-21 18:46] VITALS: BP 146/80; TEMP 98
== END 2017-07-21 18:45 | disposition home or self-care (01) ==
LOC: EC 15:26
DX: F41.0 Panic disorder [episodic paroxysmal anxiety] (principal); M79.7 Fibromyalgia; Z86.73 Personal history of transient ischemic attack (TIA), and cerebral infarction without residual deficits; Z88.8 Allergy status to other drugs, medicaments and biological substances; Z79.82 Long term (current) use of aspirin; Z79.899 Other long term (current) drug therapy
CPT/HCPCS: 36415; 93005; 80053; 82550; 82553; 84484; 85025; 85610; 85730; 70496; 70450; 70498; 99284; 96374; 96375; 96361; J2060; J2405; Q9967

== ENCOUNTER 2018-03-10 17:29 | Emergency (ER) | payer BC, MEDICARE ==
[2018-03-10 17:47] VITALS: RESP 16; TEMP 98.1
[2018-03-10] MEDS ORDERED: SODIUM CHLORIDE 0.9% 1,000 ML IV STA (17:56)
[2018-03-10] MEDS ORDERED: SODIUM CHLORIDE 0.9% 500 ML 500 ML IV STA (17:56)
[2018-03-10] MEDS ORDERED: ONDANSETRON 4 MG/2 ML VIAL IM STA (17:56)
--- NOTE | 2018-03-10 18:05 | ED ---
Weakness HPI - General Chief complaint: Weakness Stated complaint: vomiting Time Seen by Provider: 03/10/18 17:31 Source: patient, family, EMS, RN notes reviewed Mode of arrival: EMS Limitations: no limitations - History of Present Illness Initial comments: 37-year-old female presents emergency Department with chief complaint of nausea vomiting, jaundice weakness. Patient states she fell sleep and chair states that she was sleeping and was woke up by her when she began to vomit. Her states that she is very drowsy just didn't seem to respond initially though she woke up quickly. Patient states she still feels nauseated. Patient denies any chest pain or shortness of breath. 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 Patient states she had surgery at [facility] in 2017. Patient denies any new focal weakness, headache, dizziness, blurred vision, chest pain or shortness breath. She only complains of nausea and generalized weakness. - Related Data Home Medications Medication Instructions Recorded Confirmed Folic Acid 1 mg PO DAILY 06/07/16 03/10/18 tiZANidine HCL [Zanaflex] 12 mg PO HS 06/13/16 03/10/18 Aspirin EC [Ecotrin Low Dose] 81 mg PO DAILY 11/26/16 03/10/18 Ergocalciferol (Vitamin D2) 50,000 unit PO SA 11/26/16 03/10/18 [Vitamin D2] Gabapentin 600 mg PO TID 11/26/16 03/10/18 Citalopram Hydrobromide [CeleXA] 20 mg PO DAILY 07/21/17 03/10/18 Cyanocobalamin (Vitamin B-12) 1,000 mcg PO DAILY 07/21/17 03/10/18 [Vitamin B-12] Furosemide [Lasix] 40 mg PO DAILY PRN 07/21/17 03/10/18 Losartan/Hydrochlorothiazide 1 tab PO DAILY 07/21/17 03/10/18 [Losartan-Hctz 100-12.5 mg Tab] Potassium Chloride [Klor-Con 20] 20 meq PO DAILY 07/21/17 03/10/18 Verapamil HCl [Verapamil ER] 180 mg PO DAILY 07/21/17 03/10/18 HYDROcodone/APAP 5-325MG [Schneider 1 tab PO Q6HR PRN 03/10/18 03/10/18 5-325] Allergies Allergy/AdvReac Type Severity Reaction Status Date / Time pregabalin [From Lyrica] Allergy Swelling Verified 03/10/18 17:43 Review of Systems ROS Statement: Those systems with pertinent positive or pertinent negative responses have been documented in the HPI. ROS Other: All systems not noted in ROS Statement are negative. Past Medical History Past Medical History: CVA/TIA, Fibromyalgia Additional Past Medical History / Comment(s): Pt states she has had 4 previous CVAs with L sided weakness, she currently has a loop recorder in place and states she has had 2 pauses-one 3 seconds and was asymptomatic and one 8 seconds where she felt briefly dizzy, headaches, L hand pain and sometimes hand curls. History of Any Multi-Drug Resistant Organisms: None Reported Past Surgical History: Tonsillectomy Additional Past Surgical History / Comment(s): 09/2015 loop recorder, GEORGE, EGD, EDAS, craniotomy Past Anesthesia/Blood Transfusion Reactions: No Reported Reaction Past Psychological History: Anxiety Smoking Status: Never smoker Past Alcohol Use History: None Reported Past Drug Use History: None Reported - Past Family History Father Family Medical History: Coronary Artery Disease (CAD), Diabetes Mellitus Additional Family Medical History / Comment(s): Father has a stent that was placed when he was 67yrs old. Mother Family Medical History: Cancer, Hypertension Additional Family Medical History / Comment(s): Mother has had breast cancer and melanoma. General Exam Limitations: no limitations General appearance: alert, in no apparent distress Head exam: Present: atraumatic, normocephalic, normal inspection Eye exam: Present: normal appearance, PERRL, EOMI. Absent: scleral icterus, conjunctival injection, periorbital swelling ENT exam: Present: normal exam, normal oropharynx, mucous membranes moist Neck exam: Present: normal inspection, full ROM. Absent: tenderness, meningismus, lymphadenopathy Respiratory exam: Present: normal lung sounds bilaterally. Absent: respiratory distress, wheezes, rales, rhonchi, stridor Cardiovascular Exam: Present: regular rate, normal rhythm, normal heart sounds. Absent: systolic murmur, diastolic murmur, rubs, gallop, clicks GI/Abdominal exam: Present: soft, normal bowel sounds. Absent: distended, tenderness, guarding, rebound, rigid Extremities exam: Present: other (Left-sided weakness noted, chronic) Neurological exam: Present: alert, oriented X3, CN II-XII intact, reflexes normal, other (Unable to assess finger-nose on the left secondary to chronic left-sided weakness). Absent: motor sensory deficit Skin exam: Present: warm, dry, intact Course Vital Signs 03/10/18 03/10/18 17:43 19:44 Temperature 98.1 F Pulse Rate 84 86 Respiratory 16 16 Rate Blood Pressure 122/85 135/88 O2 Sat by Pulse 97 100 Oximetry EKG Findings - EKG Comments: EKG Findings:: EKG performed at 18:42 normal sinus rhythm with a rate of 82 MS 144 QRS 88 QT/QTc 412/481 prolonged QT Medical Decision Making - Medical Decision Making 37 show female presented for nausea vomiting. Patient lab work, IV hydration, antiemetics, chest x-ray. There are no acute findings other than mild leukocytosis most likely reactive. There is no evidence of bacterial infection. Patient feels improved and is tolerating oral intake. Patient will be discharged return parameters were discussed. - Lab Data Result diagrams: 03/10/18 18:45 03/10/18 18:45 Lab Results 03/10/18 03/10/18 03/10/18 Range/Units 18:45 18:45 18:45 WBC 18.0 H (3.8-10.6) k/uL RBC 4.63 (3.80-5.40) m/uL Hgb 12.9 (11.4-16.0) gm/dL Hct 41.4 (34.0-46.0) % MCV 89.5 (80.0-100.0) fL MCH 27.8 (25.0-35.0) pg MCHC 31.1 (31.0-37.0) g/dL RDW 13.7 (11.5-15.5) % Plt Count 373 (150-450) k/uL Neutrophils % 88 % Lymphocytes % 6 % Monocytes % 3 % Eosinophils % 1 % Basophils % 0 % Neutrophils # 15.8 H (1.3-7.7) k/uL Lymphocytes # 1.1 (1.0-4.8) k/uL Monocytes # 0.6 (0-1.0) k/uL Eosinophils # 0.1 (0-0.7) k/uL Basophils # 0.1 (0-0.2) k/uL Hypochromasia Slight Sodium 139 (137-145) mmol/L Potassium 3.9 (3.5-5.1) mmol/L Chloride 97 L (98-107) mmol/L Carbon Dioxide 29 (22-30) mmol/L Anion Gap 13 mmol/L BUN 22 H (7-17) mg/dL Creatinine 1.53 H (0.52-1.04) mg/dL Est GFR (CKD-EPI)AfAm 50 (>60 ml/min/1.73 sqM) Est GFR (CKD-EPI)NonAf 44 (>60 ml/min/1.73 sqM) Glucose 117 H (74-99) mg/dL Plasma Lactic Acid Yovanny 1.6 (0.7-2.0) mmol/L Calcium 9.4 (8.4-10.2) mg/dL Magnesium 2.0 (1.6-2.3) mg/dL Total Bilirubin 0.3 (0.2-1.3) mg/dL AST 16 (14-36) U/L ALT 18 (9-52) U/L Alkaline Phosphatase 110 (38-126) U/L Troponin I (0.000-0.034) ng/mL Total Protein 8.1 (6.3-8.2) g/dL Albumin 4.4 (3.5-5.0) g/dL Urine Color Urine Appearance (Clear) Urine pH (5.0-8.0) Ur Specific [place] (1.001-1.035) Urine Protein (Negative) Urine Glucose (UA) (Negative) Urine Ketones (Negative) Urine Blood (Negative) Urine Nitrite (Negative) Urine Bilirubin (Negative) Urine Urobilinogen (<2.0) mg/dL Ur Leukocyte Esterase (Negative) 03/10/18 03/10/18 Range/Units 18:45 19:40 WBC (3.8-10.6) k/uL RBC (3.80-5.40) m/uL Hgb (11.4-16.0) gm/dL Hct (34.0-46.0) % MCV (80.0-100.0) fL MCH (25.0-35.0) pg MCHC (31.0-37.0) g/dL RDW (11.5-15.5) % Plt Count (150-450) k/uL Neutrophils % % Lymphocytes % % Monocytes % % Eosinophils % % Basophils % % Neutrophils # (1.3-7.7) k/uL Lymphocytes # (1.0-4.8) k/uL Monocytes # (0-1.0) k/uL Eosinophils # (0-0.7) k/uL Basophils # (0-0.2) k/uL Hypochromasia Sodium (137-145) mmol/L Potassium (3.5-5.1) mmol/L Chloride (98-107) mmol/L Carbon Dioxide (22-30) mmol/L Anion Gap mmol/L BUN (7-17) mg/dL Creatinine (0.52-1.04) mg/dL Est GFR (CKD-EPI)AfAm (>60 ml/min/1.73 sqM) Est GFR (CKD-EPI)NonAf (>60 ml/min/1.73 sqM) Glucose (74-99) mg/dL Plasma Lactic Acid Yovanny (0.7-2.0) mmol/L Calcium (8.4-10.2) mg/dL Magnesium (1.6-2.3) mg/dL Total Bilirubin (0.2-1.3) mg/dL AST (14-36) U/L ALT (9-52) U/L Alkaline Phosphatase (38-126) U/L Troponin I <0.012 (0.000-0.034) ng/mL Total Protein (6.3-8.2) g/dL Albumin (3.5-5.0) g/dL Urine Color Light Yellow Urine Appearance Clear (Clear) Urine pH 5.5 (5.0-8.0) Ur Specific [place] 1.009 (1.001-1.035) Urine Protein Negative (Negative) Urine Glucose (UA) Negative (Negative) Urine Ketones Negative (Negative) Urine Blood Negative (Negative) Urine Nitrite Negative (Negative) Urine Bilirubin Negative (Negative) Urine Urobilinogen <2.0 (<2.0) mg/dL Ur Leukocyte Esterase Negative (Negative) Disposition Clinical Impression: Nausea & vomiting Disposition: HOME SELF-CARE Condition: Stable Instructions: Acute Nausea and Vomiting (ED) Additional Instructions: Please return to the Emergency Department if symptoms worsen or any other concerns. Is patient prescribed a controlled substance at d/c from ED?: No Referrals: Amy Harper MD [Primary Care Provider] - 1-2 days Time of Disposition: 20:21
--- NOTE | 2018-03-10 19:09 | XR ---
EXAMINATION TYPE: XR chest 2V DATE OF EXAM: 03/10/2018 COMPARISON: 06/13/2016 HISTORY: Weakness TECHNIQUE: Frontal and lateral views of the chest are obtained. FINDINGS: Heart and mediastinum are normal. Lungs are clear of infiltrate. There is no pleural effus ion. There are chest leads. Bony thorax is intact. IMPRESSION: No active cardiopulmonary disease. No change.
[2018-03-10 19:10] LABS: Basophils # (A) 0.1 k/uL (0-0.2); Basophils % (A) 0 %; Eosinophils # (A) 0.1 k/uL (0-0.7); Eosinophils % (A) 1 %; HCT 41.4 % (34.0-46.0); HGB 12.9 gm/dL (11.4-16.0); Hypochromasia Slight; Lymphocytes # (A) 1.1 k/uL (1.0-4.8); Lymphocytes % (A) 6 %; MCH 27.8 pg (25.0-35.0); MCHC 31.1 g/dL (31.0-37.0); MCV 89.5 fL (80.0-100.0); Mean Platelet Volume 7.5; Monocytes # (A) 0.6 k/uL (0-1.0); Monocytes % (A) 3 %; Neutrophils # (A) 15.8 k/uL (1.3-7.7); Neutrophils % (A) 88 %; Platelet Count 373 k/uL (150-450); RBC 4.63 m/uL (3.80-5.40); RDW 13.7 % (11.5-15.5)
[2018-03-10 19:15] LABS: Albumin 4.4 g/dL (3.5-5.0); Calcium 9.4 mg/dL (8.4-10.2); Potassium 3.9 mmol/L (3.5-5.1); Total Bilirubin 0.3 mg/dL (0.2-1.3); Total Protein 8.1 g/dL (6.3-8.2)
[2018-03-10 19:57] LABS: Appearance,Urine Clear (Clear); Bilirubin,Urine Negative (Negative); Blood,Urine Negative (Negative); Color,Urine Light Yellow; Glucose,Urine (UA) Negative (Negative); Ketones,Urine Negative (Negative); Leukocyte Esterase,Urine Negative (Negative); Nitrite,Urine Negative (Negative); PH, Urine 5.5 (5.0-8.0); Protein,Urine Negative (Negative); Specific Gravity,Urine 1.009 (1.001-1.035); Urobilinogen,Urine <2.0 mg/dL (<2.0)
[2018-03-10] MEDS ORDERED: ONDANSETRON 4 MG ODT STARTER PACK 2 TAB BTL PO STA (20:21)
[2018-03-10 21:12] VITALS: BP 155/108; PULSE 85
== END 2018-03-10 21:15 | disposition home or self-care (01) ==
LOC: EC 17:29
DX: R11.2 Nausea with vomiting, unspecified (principal); D72.829 Elevated white blood cell count, unspecified; R29.898 Other symptoms and signs involving the musculoskeletal system; M79.7 Fibromyalgia; F41.9 Anxiety disorder, unspecified; Z86.73 Personal history of transient ischemic attack (TIA), and cerebral infarction without residual deficits; Z79.899 Other long term (current) drug therapy; Z79.82 Long term (current) use of aspirin; Z88.8 Allergy status to other drugs, medicaments and biological substances; Z82.49 Family history of ischemic heart disease and other diseases of the circulatory system
CPT/HCPCS: 36415; 93005; 80053; 83605; 83735; 84484; 85025; 81003; 71046; 99285; 96360; 96372; J2405; S0119

== ENCOUNTER → 2018-03-15 | Outpatient (CLI) | payer BC, MEDICARE ==
--- NOTE | 2018-03-15 09:59 | CT ---
EXAMINATION TYPE: CT brain wo con DATE OF EXAM: 03/15/2018 COMPARISON: 07/21/2017 HISTORY: 37-year-old female with left arm numbness, history of multiple strokes with surgery TECHNIQUE: Examination was done in axial plane without intravenous contrast. Coronal and sagittal r econstructions performed. CT DLP: 999.8 mGycm Automated exposure control for dose reduction was used. FINDINGS: Prior right frontotemporal craniotomy flap with underlying encephalomalacia and volume loss in the ri ght frontal lobe. There is some secondary deviation of the midline towards the site of volume loss by 7 mm and asymmetric enlargement of the right lateral ventricle, unchanged from prior exam. No evidence for acute intracranial hemorrhage, effacement of basal subarachnoid cisterns, extra-axial fluid collection, or loss of hodge-white matter differentiation identified elsewhere in the brain. Leftward nasal septal deviation. Trace mucosal thickening left maxillary sinus. Mastoid air cells wel l pneumatized. IMPRESSION: 1. Stable exam with prior right-sided craniotomy flap and underlying extensive right frontal lobe enc ephalomalacia and volume loss. 2. There is similar deviation of the midline towards the side of volume loss by 7 mm and asymmetric e nlargement of the right lateral ventricle on an ex vacuo basis. 3. No acute intracranial abnormality seen.
== END | disposition home or self-care (01) ==
LOC: RADCTMAIN 08:19
PROVIDERS: ATTEND Internal Medicine
DX: G93.89 Other specified disorders of brain (principal); Z98.890 Other specified postprocedural states
CPT/HCPCS: 70450

== ENCOUNTER → 2018-07-14 | Outpatient (CLI) | payer BC, MEDICARE ==
--- NOTE | 2018-07-14 08:26 | MR ---
EXAMINATION TYPE: MR angio head wo con DATE OF EXAM: 07/14/2018 8:13 AM COMPARISON: Previous study dated 06/04/2016 HISTORY: Moyamoya disease / Cerebral infarction TECHNIQUE: Time of flight images focusing on the [place] were performed without contrast. FINDINGS: The right vertebral artery is dominant. The right posterior to indicating arteries visualized. The left is not. There is an occlusion of the M1 segment of the right middle cerebral artery. There is also an occlusi on of the A1 segment on the left. There is abnormal arborization of the right middle cerebral artery and there is an O malacia in the distribution of the right middle cerebral artery. The anterior communicating artery is not visualized. No sizable aneurysm is seen. The overall appearance is unchanged from previous. IMPRESSION: 1. 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 2. Occlusion of the A1 segment of the left anterior cerebral artery. 3. Nonvisualization of the anterior communicating artery.
--- NOTE | 2018-07-14 08:35 | MR ---
EXAMINATION TYPE: MR brain wo con DATE OF EXAM: 07/14/2018 8:13 AM. COMPARISON: Previous study dated 06/15/2016. HISTORY: Lovell-Lovell disease Technique: Multiplanar, multiecho imaging of the brain was obtained without intravenous contrast. FINDINGS: Midline structures are unremarkable. There is a normal craniocervical junction. Echoplanar diffusion imaging demonstrates a small area of restricted diffusion in the left frontal re gion. There is absence of signal void in the distal right ICA and also the left ICA. The orbits appear norm al. There is no evidence of a CP angle mass lesion. There is a large area of an O malacia involving the territory of the right middle cerebral artery. Th ere is blooming artifact throughout this region suggesting a previous bleed. This was present previou sly. There is ex vacuo enlargement of the right lateral ventricle. There is a small amount of abnorma l signal in the left frontal lobe in the region of restricted diffusion suggesting recent infarction in this area. There is no mass defect or midline shift identified. There are scattered, tiny areas of increased FLAIR signal in the deep white matter tracts of the cerebral hemispheres, unchanged from p revious. There is some abnormal signal in the keena likely secondary to wallerian degeneration. IMPRESSION: 1. TINY, 1 CM AREA OF NEW ISCHEMIA IN THE LEFT FRONTAL LOBE ADJACENT TO THE INTERCEREBRAL FAILURE. 2. EVIDENCE OF AN OLD RIGHT MCA INFARCT. 3. ARTERIAL OCCLUSIONS DESCRIBED. 4. SCATTERED FLAIR LESIONS, UNCHANGED FROM PREVIOUS. 5.
== END | disposition home or self-care (01) ==
LOC: RADMRIMAIN 07:09
PROVIDERS: ATTEND Psychiatry & Neurology Vascular Neurology
DX: I63.522 Cerebral infarction due to unspecified occlusion or stenosis of left anterior cerebral artery (principal); I63.511 Cerebral infarction due to unspecified occlusion or stenosis of right middle cerebral artery; I67.82 Cerebral ischemia; I67.5 Moyamoya disease
CPT/HCPCS: 70544; 70551

== ENCOUNTER 2018-11-11 13:19 | Emergency (ER) | payer BC, MEDICARE ==
[2018-11-11] MEDS ORDERED: SUCCINYLCHOLINE CHLORIDE VIAL 200 MG/10 ML VIAL IV STA (13:29)
[2018-11-11] MEDS ORDERED: ETOMIDATE 2 MG/ML 10 ML VIAL IVP STA (13:29)
[2018-11-11 13:32] LABS: Glucose,Whole Blood 128 mg/dL (75-99)
--- NOTE | 2018-11-11 13:37 | ED ---
Altered Mental Status HPI - General Stated Complaint: UNRESPONSIVE Time Seen by Provider: 11/11/18 13:32 - History of Present Illness Initial Comments: Patient presents with altered mental status. She is not answering questions. She is completely unresponsive on arrival. She was found down by her . It is not clear how long she has been down for. No additional information can be obtained were is provided. MD Complaint: altered mental status - Related Data Home Medications Medication Instructions Recorded Confirmed tiZANidine HCL [Zanaflex] 4 mg PO TID 06/13/16 11/11/18 Gabapentin 600 mg PO BID 11/26/16 11/11/18 HYDROcodone/APAP 5-325MG [[place] 1 tab PO QID PRN 03/10/18 11/11/18 5-325] ALPRAZolam [Xanax] 0.25 mg PO DAILY 11/11/18 11/11/18 DULoxetine HCL [Cymbalta] 30 mg PO DAILY 11/11/18 11/11/18 Metoclopramide [Reglan] 5 mg PO TID 11/11/18 11/11/18 Valsartan/Hydrochlorothiazide 1 tab PO DAILY 11/11/18 11/11/18 [Valsartan-Hctz 320-12.5 mg Tab] busPIRone HCl [Buspar] 10 mg PO BID 11/11/18 11/11/18 Allergies Allergy/AdvReac Type Severity Reaction Status Date / Time pregabalin [From Lyrica] Allergy Swelling Verified 11/11/18 13:44 Review of Systems ROS Statement: Those systems with pertinent positive or pertinent negative responses have been documented in the HPI. ROS Other: All systems not noted in ROS Statement are negative. Past Medical History Past Medical History: CVA/TIA, Fibromyalgia Additional Past Medical History / Comment(s): Pt states she has had 4 previous CVAs with L sided weakness, she currently has a loop recorder in place and states she has had 2 pauses-one 3 seconds and was asymptomatic and one 8 seconds where she felt briefly dizzy, headaches, L hand pain and sometimes hand curls. History of Any Multi-Drug Resistant Organisms: None Reported Past Surgical History: Tonsillectomy Additional Past Surgical History / Comment(s): 09/2015 loop recorder, GEORGE, EGD, EDAS, craniotomy Past Anesthesia/Blood Transfusion Reactions: No Reported Reaction Past Psychological History: Anxiety Smoking Status: Never smoker Past Alcohol Use History: None Reported Past Drug Use History: None Reported - Past Family History Father Family Medical History: Coronary Artery Disease (CAD), Diabetes Mellitus Additional Family Medical History / Comment(s): Father has a stent that was placed when he was 67yrs old. Mother Family Medical History: Cancer, Hypertension Additional Family Medical History / Comment(s): Mother has had breast cancer and melanoma. General Exam Limitations: altered mental status General appearance: obtunded, obese Head exam: Present: atraumatic Eye exam: Present: normal appearance Pupils: Present: normal accommodation ENT exam: Present: other (There is presence of vomiting in the airway) Neck exam: Present: normal inspection Respiratory exam: Present: rhonchi Cardiovascular Exam: Present: tachycardia GI/Abdominal exam: Present: soft. Absent: rigid Extremities exam: Present: normal capillary refill. Absent: tenderness Back exam: Absent: rash noted Neurological exam: Present: altered Skin exam: Present: warm, dry Course Vital Signs 11/11/18 11/11/18 11/11/18 13:47 14:48 15:25 Temperature 98.7 F Pulse Rate 138 H 123 H 124 H Respiratory 50 H 12 12 Rate Blood Pressure 146/112 215/108 O2 Sat by Pulse 95 94 L 80 L Oximetry 11/11/18 15:30 Temperature Pulse Rate Respiratory Rate Blood Pressure O2 Sat by Pulse 92 L Oximetry Medical Decision Making - Medical Decision Making Patient presented with altered mental status. Her CT and CTA confirmed large vessel stroke. I did speak with their interventional. They're requesting transfer to outside facility. Patient's examination showed progressively worsening respiratory sounds, consistent with pulmonary edema. Therefore I felt the patient required slight decrease in her blood pressure. I ordered IV nicardipine and a dose of IV Lasix. Patient is transferred to outside facility. - Lab Data Result diagrams: 11/11/18 13:36 11/11/18 13:36 Lab Results 11/11/18 11/11/18 11/11/18 Range/Units 13:30 13:36 13:36 WBC 26.2 H (3.8-10.6) k/uL RBC 4.65 (3.80-5.40) m/uL Hgb 12.4 (11.4-16.0) gm/dL Hct 39.9 (34.0-46.0) % MCV 85.7 (80.0-100.0) fL MCH 26.6 (25.0-35.0) pg MCHC 31.0 (31.0-37.0) g/dL RDW 14.5 (11.5-15.5) % Plt Count 482 H (150-450) k/uL Neutrophils % 93 % Lymphocytes % 3 % Monocytes % 3 % Eosinophils % 0 % Basophils % 0 % Neutrophils # 24.5 H (1.3-7.7) k/uL Lymphocytes # 0.9 L (1.0-4.8) k/uL Monocytes # 0.7 (0-1.0) k/uL Eosinophils # 0.0 (0-0.7) k/uL Basophils # 0.1 (0-0.2) k/uL Hypochromasia Slight PT (9.0-12.0) sec INR (<1.2) APTT (22.0-30.0) sec Sodium (137-145) mmol/L Potassium (3.5-5.1) mmol/L Chloride (98-107) mmol/L Carbon Dioxide (22-30) mmol/L Anion Gap mmol/L BUN (7-17) mg/dL Creatinine (0.52-1.04) mg/dL Est GFR (CKD-EPI)AfAm (>60 ml/min/1.73 sqM) Est GFR (CKD-EPI)NonAf (>60 ml/min/1.73 sqM) Glucose (74-99) mg/dL POC Glucose (mg/dL) 128 H (75-99) mg/dL POC Glu Fixed Route Bus Operator ID Serena Taylor Calcium (8.4-10.2) mg/dL Total Bilirubin (0.2-1.3) mg/dL AST (14-36) U/L ALT (9-52) U/L Alkaline Phosphatase (38-126) U/L Ammonia 23 (<30) umol/L Troponin I (0.000-0.034) ng/mL Total Protein (6.3-8.2) g/dL Albumin (3.5-5.0) g/dL Urine Color Urine Appearance (Clear) Urine pH (5.0-8.0) Ur Specific [place] (1.001-1.035) Urine Protein (Negative) Urine Glucose (UA) (Negative) Urine Ketones (Negative) Urine Blood (Negative) Urine Nitrite (Negative) Urine Bilirubin (Negative) Urine Urobilinogen (<2.0) mg/dL Ur Leukocyte Esterase (Negative) Urine RBC (0-5) /hpf Ur Squamous Epith Cells (0-4) /hpf Urine Mucus (None) /hpf Urine Opiates Screen (NotDetected) Ur Oxycodone Screen (NotDetected) Urine Methadone Screen (NotDetected) Ur Propoxyphene Screen (NotDetected) Ur Barbiturates Screen (NotDetected) U Tricyclic Antidepress (NotDetected) Ur Phencyclidine Scrn (NotDetected) Ur Amphetamines Screen (NotDetected) U Methamphetamines Scrn (NotDetected) U Benzodiazepines Scrn (NotDetected) Urine Cocaine Screen (NotDetected) U Marijuana (THC) Screen (NotDetected) 11/11/18 11/11/18 11/11/18 Range/Units 13:36 13:36 13:36 WBC (3.8-10.6) k/uL RBC (3.80-5.40) m/uL Hgb (11.4-16.0) gm/dL Hct (34.0-46.0) % MCV (80.0-100.0) fL MCH (25.0-35.0) pg MCHC (31.0-37.0) g/dL RDW (11.5-15.5) % Plt Count (150-450) k/uL Neutrophils % % Lymphocytes % % Monocytes % % Eosinophils % % Basophils % % Neutrophils # (1.3-7.7) k/uL Lymphocytes # (1.0-4.8) k/uL Monocytes # (0-1.0) k/uL Eosinophils # (0-0.7) k/uL Basophils # (0-0.2) k/uL Hypochromasia PT 10.4 (9.0-12.0) sec INR 1.0 (<1.2) APTT 24.4 (22.0-30.0) sec Sodium 140 (137-145) mmol/L Potassium 4.4 (3.5-5.1) mmol/L Chloride 104 (98-107) mmol/L Carbon Dioxide 21 L (22-30) mmol/L Anion Gap 15 mmol/L BUN 18 H (7-17) mg/dL Creatinine 0.75 (0.52-1.04) mg/dL Est GFR (CKD-EPI)AfAm >90 (>60 ml/min/1.73 sqM) Est GFR (CKD-EPI)NonAf >90 (>60 ml/min/1.73 sqM) Glucose 131 H (74-99) mg/dL POC Glucose (mg/dL) (75-99) mg/dL POC Glu Fixed Route Bus Operator ID Calcium 10.0 (8.4-10.2) mg/dL Total Bilirubin 0.7 (0.2-1.3) mg/dL AST 34 (14-36) U/L ALT 15 (9-52) U/L Alkaline Phosphatase 101 (38-126) U/L Ammonia (<30) umol/L Troponin I <0.012 (0.000-0.034) ng/mL Total Protein 8.5 H (6.3-8.2) g/dL Albumin 4.6 (3.5-5.0) g/dL Urine Color Urine Appearance (Clear) Urine pH (5.0-8.0) Ur Specific [place] (1.001-1.035) Urine Protein (Negative) Urine Glucose (UA) (Negative) Urine Ketones (Negative) Urine Blood (Negative) Urine Nitrite (Negative) Urine Bilirubin (Negative) Urine Urobilinogen (<2.0) mg/dL Ur Leukocyte Esterase (Negative) Urine RBC (0-5) /hpf Ur Squamous Epith Cells (0-4) /hpf Urine Mucus (None) /hpf Urine Opiates Screen (NotDetected) Ur Oxycodone Screen (NotDetected) Urine Methadone Screen (NotDetected) Ur Propoxyphene Screen (NotDetected) Ur Barbiturates Screen (NotDetected) U Tricyclic Antidepress (NotDetected) Ur Phencyclidine Scrn (NotDetected) Ur Amphetamines Screen (NotDetected) U Methamphetamines Scrn (NotDetected) U Benzodiazepines Scrn (NotDetected) Urine Cocaine Screen (NotDetected) U Marijuana (THC) Screen (NotDetected) 11/11/18 Range/Units 14:15 WBC (3.8-10.6) k/uL RBC (3.80-5.40) m/uL Hgb (11.4-16.0) gm/dL Hct (34.0-46.0) % MCV (80.0-100.0) fL MCH (25.0-35.0) pg MCHC (31.0-37.0) g/dL RDW (11.5-15.5) % Plt Count (150-450) k/uL Neutrophils % % Lymphocytes % % Monocytes % % Eosinophils % % Basophils % % Neutrophils # (1.3-7.7) k/uL Lymphocytes # (1.0-4.8) k/uL Monocytes # (0-1.0) k/uL Eosinophils # (0-0.7) k/uL Basophils # (0-0.2) k/uL Hypochromasia PT (9.0-12.0) sec INR (<1.2) APTT (22.0-30.0) sec Sodium (137-145) mmol/L Potassium (3.5-5.1) mmol/L Chloride (98-107) mmol/L Carbon Dioxide (22-30) mmol/L Anion Gap mmol/L BUN (7-17) mg/dL Creatinine (0.52-1.04) mg/dL Est GFR (CKD-EPI)AfAm (>60 ml/min/1.73 sqM) Est GFR (CKD-EPI)NonAf (>60 ml/min/1.73 sqM) Glucose (74-99) mg/dL POC Glucose (mg/dL) (75-99) mg/dL POC Glu Fixed Route Bus Operator ID Calcium (8.4-10.2) mg/dL Total Bilirubin (0.2-1.3) mg/dL AST (14-36) U/L ALT (9-52) U/L Alkaline Phosphatase (38-126) U/L Ammonia (<30) umol/L Troponin I (0.000-0.034) ng/mL Total Protein (6.3-8.2) g/dL Albumin (3.5-5.0) g/dL Urine Color Yellow Urine Appearance Turbid H (Clear) Urine pH 6.0 (5.0-8.0) Ur Specific [place] 1.041 H (1.001-1.035) Urine Protein 3+ H (Negative) Urine Glucose (UA) Negative (Negative) Urine Ketones 2+ H (Negative) Urine Blood Moderate H (Negative) Urine Nitrite Negative (Negative) Urine Bilirubin Negative (Negative) Urine Urobilinogen <2.0 (<2.0) mg/dL Ur Leukocyte Esterase Negative (Negative) Urine RBC 1 (0-5) /hpf Ur Squamous Epith Cells <1 (0-4) /hpf Urine Mucus Rare H (None) /hpf Urine Opiates Screen Detected H (NotDetected) Ur Oxycodone Screen Not Detected (NotDetected) Urine Methadone Screen Not Detected (NotDetected) Ur Propoxyphene Screen Not Detected (NotDetected) Ur Barbiturates Screen Not Detected (NotDetected) U Tricyclic Antidepress Not Detected (NotDetected) Ur Phencyclidine Scrn Not Detected (NotDetected) Ur Amphetamines Screen Not Detected (NotDetected) U Methamphetamines Scrn Not Detected (NotDetected) U Benzodiazepines Scrn Detected H (NotDetected) Urine Cocaine Screen Not Detected (NotDetected) U Marijuana (THC) Screen Not Detected (NotDetected) - EKG Data EKG Comments: Twelve-lead EKG shows ventricular rate 142 bpm, normal NH interval and QRS complexes, no ST elevation or depression, interpreted by me as sinus t achycardia. Critical Care Time Critical Care Time: Yes Total Critical Care Time: 35 Disposition Clinical Impression: Altered mental status Disposition: OTHER INSTITUTION NOT DEFINED Referrals: Amy Harper MD [Primary Care Provider] - 1-2 days - Out of Hospital Transfer - Req. Specs Out of Hospital Transfer - Requested Specifics: Neurological ICU ([place])
[2018-11-11] MEDS ORDERED: MIDAZOLAM 1 MG/ML 5 ML VIAL IV STA ×2 (13:38→13:39)
[2018-11-11 13:45] LABS: Basophils # (A) 0.1 k/uL (0-0.2); Basophils % (A) 0 %; Eosinophils % (A) 0 %; HCT 39.9 % (34.0-46.0); HGB 12.4 gm/dL (11.4-16.0); Hypochromasia Slight; Lymphocytes # (A) 0.9 k/uL (1.0-4.8); Lymphocytes % (A) 3 %; MCH 26.6 pg (25.0-35.0); MCV 85.7 fL (80.0-100.0); Mean Platelet Volume 7.7; Monocytes # (A) 0.7 k/uL (0-1.0); Monocytes % (A) 3 %; Neutrophils # (A) 24.5 k/uL (1.3-7.7); Neutrophils % (A) 93 %; Platelet Count 482 k/uL (150-450); RBC 4.65 m/uL (3.80-5.40); RDW 14.5 % (11.5-15.5); WBC 26.2 k/uL (3.8-10.6)
[2018-11-11] MEDS ORDERED: fentaNYL (PF) 1,000 MCG in SODIUM CHLORIDE 0.9% 80 ML IV SCH (13:45)
[2018-11-11 13:50] VITALS: TEMP 98.7
[2018-11-11 13:53] LABS: ALT 15 U/L (9-52); AST 34 U/L (14-36); African American GFR (CKD) >90 (>60 ml/min/1.73 sqM); Albumin 4.6 g/dL (3.5-5.0); Alkaline Phosphatase 101 U/L (38-126); Anion Gap 15 mmol/L; Blood Urea Nitrogen 18 mg/dL (7-17); Carbon Dioxide 21 mmol/L (22-30); Chloride 104 mmol/L (98-107); Glucose 131 mg/dL (74-99); Sodium 140 mmol/L (137-145); Total Bilirubin 0.7 mg/dL (0.2-1.3); Total Protein 8.5 g/dL (6.3-8.2)
[2018-11-11 13:54] LABS: Prothrombin Time 10.4 sec (9.0-12.0)
[2018-11-11 13:55] LABS: Partial Thromboplastin Time 24.4 sec (22.0-30.0)
--- NOTE | 2018-11-11 13:55 | XR ---
EXAMINATION TYPE: XR chest 1V portable DATE OF EXAM: 11/11/2018 COMPARISON: 03/10/2018 HISTORY: Altered mental status TECHNIQUE: Single frontal view of the chest is obtained. FINDINGS: There is new Cardia mediastinal silhouette enlargement that may be relative given the port able nature of the exam and low lung volumes. Enteric tube appears located in the right mainstem bron chus and retraction of 2 cm is recommended. Enteric tube is appropriately placed. Cardiac loop record er is noted. Horizontally oriented scattered opacities may be on the basis of atelectasis given the l ow lung volumes. No sizable pneumothorax or pleural effusion. IMPRESSION: 1. Endotracheal tube is caudal in position and should be retracted approximately 2 cm for optimal candida cement as this appears coursing into the right mainstem bronchus. Enteric tube is satisfactorily plac ed. Line 2. New mediastinal silhouette could be relative given the low lung volumes and AP nature of the exam. If there is further concern CT thorax could be performed. Linear bilateral airspace disease is likel y related to atelectasis.
[2018-11-11 14:00] LABS: Potassium 4.4 mmol/L (3.5-5.1)
[2018-11-11] MEDS ORDERED: fentaNYL (PF) 50 MCG/ML 2 ML AMP IVP STA (14:05)
[2018-11-11] MEDS ORDERED: VECURONIUM 10 MG VIAL IV STA (14:08)
[2018-11-11] MEDS ORDERED: VECURONIUM 10 MG VIAL IV ONE (14:20)
[2018-11-11 14:35] LABS: Appearance,Urine Turbid (Clear); Bilirubin,Urine Negative (Negative); Blood,Urine Moderate (Negative); Color,Urine Yellow; Glucose,Urine (UA) Negative (Negative); Ketones,Urine 2+ (Negative); Leukocyte Esterase,Urine Negative (Negative); Mucus,Urine Rare /hpf; Nitrite,Urine Negative (Negative); Protein,Urine 3+ (Negative); RBC,Urine 1 /hpf (0-5); Specific Gravity,Urine 1.041 (1.001-1.035); Squamous Epithelial Cell,Urine <1 /hpf (0-4); Urobilinogen,Urine <2.0 mg/dL (<2.0)
[2018-11-11 14:41] LABS: Amphetamine Screen,Urine Not Detected (NotDetected); Barbiturate Screen,Urine Not Detected (NotDetected); Benzodiazepines Screen,Urine Detected (NotDetected); Cocaine Screen,Urine Not Detected (NotDetected); Methadone Screen, Urine Not Detected (NotDetected); Opiate Screen,Urine Detected (NotDetected); Oxycodone Screen, Urine Not Detected (NotDetected); Phencyclidine Screen,Urine Not Detected (NotDetected); Tricyclic Antidepressant,Urine Not Detected (NotDetected); Urn Cannabinoid Scrn Not Detected (NotDetected)
--- NOTE | 2018-11-11 14:46 | CT ---
EXAMINATION TYPE: CT brain wo con DATE OF EXAM: 11/11/2018 COMPARISON: 03/15/2018 HISTORY: Altered mental status. History of multiple CVA's. CT DLP: 1062.4 mGycm. Automated Exposure Control for Dose Reduction was Utilized. TECHNIQUE: CT scan of the head is performed without contrast. There is old right temporal craniotomy defect. There is large area of right temporal lobe encephaloma lacia with enlargement of the right lateral ventricle. There is diffuse hypodensity in the left parietal lobe with cerebral edema. This extends into the lef t frontal lobe and left posterior temporal lobe. There is some effacement of the sulci on the left si de. IMPRESSION: Old right temporal lobe infarct. Diffuse hypodensity in a large area of the left cerebral hemisphere consistent with acute or subacute large left middle cerebral artery infarct. This is a change compared to old exam. No hemorrhage.
[2018-11-11] MEDS ORDERED: ASPIRIN 300 MG SUPP RECTAL STA (15:33)
[2018-11-11] MEDS ORDERED: FUROSEMIDE 10 MG/ML 10 ML VIAL IV STA (15:38)
--- NOTE | 2018-11-11 15:41 | XR ---
EXAMINATION TYPE: XR chest 1V portable DATE OF EXAM: 11/11/2018 COMPARISON: 11/11/2018 HISTORY: Hypoxemia TECHNIQUE: Single frontal view of the chest is obtained. FINDINGS: Endotracheal tube is 4 mm from the luciano. There is pulmonary edema. There is nasogastric tube. There are chest leads. There is patchy atelectasis in the lungs. IMPRESSION: Endotracheal tube is low and should BE pulled back 3 to 4 cm. There is worsening pulmona ry edema on the left side compared to exam earlier today. Patchy atelectasis.
[2018-11-11] MEDS ORDERED: niCARdipine 20 MG in SODIUM CHLORIDE 0.9% 192 ML IV SCH (15:45)
--- NOTE | 2018-11-11 16:09 | CT ---
EXAMINATION TYPE: CT angio head neck DATE OF EXAM: 11/11/2018 HISTORY: Altered mental status. History of multiple of CVA's. COMPARISON: CT DLP: 872.9 mGycm. Automated Exposure Control for Dose Reduction was Utilized. TECHNIQUE: CTA scan of the neck is performed with IV Contrast, patient injected with 65ml mL of Isov ue 370, axial images are obtained, coronal and sagittal reformatted images are reviewed. Three-D shavonne nstructed images are created on an independent workstation and reviewed. FINDINGS: There is extensive airspace consolidation and atelectasis in the visualized upper lobes. There is nor mal branching pattern of the great vessels on the aortic arch. There is bilateral arterial flow in th e subclavian arteries. There is arterial flow in the common internal and external carotid arteries bi laterally. There is arterial flow in both vertebral arteries. There is no evidence of vertebral arter y or carotid artery aneurysm or dissection. I see no evidence of hemodynamic stenosis. Endotracheal t ube is noted. There is tortuous proximal right internal carotid artery. There is arterial flow in the intracranial internal carotid arteries bilaterally. There is arterial f low in the vertebrobasilar artery system. There is small left parasellar internal carotid artery. The re appears to be significant stenosis of the proximal left middle cerebral artery. There is similar s tenosis right proximal middle cerebral artery. There is no mass effect. There is normal contrast opac ification of the venous sinuses. There is arterial flow in both anterior cerebral arteries. I see no intracranial aneurysm or neovascularity. 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 No intracranial aneurysm. No evidence of hemodynamic stenosis in the cervical carotid and vertebral arteries. Extensive bilateral pulmonary infiltrates in the upper lung mos[place]o.
[2018-11-11] MEDS ORDERED: PROPOFOL 1,000 MG in EMPTY BAG 1 BAG IV ONE (16:22)
--- NOTE | 2018-11-11 16:30 | XR ---
EXAMINATION TYPE: XR chest 1V portable DATE OF EXAM: 11/11/2018 COMPARISON: 11/11/2018 HISTORY: Check tube placement TECHNIQUE: Single frontal view of the chest is obtained. FINDINGS: endotracheal tube is 3.5 cm from the luciano. There is diffuse left-sided pulmonary edema. Nasogastric tube is present. There are chest leads. IMPRESSION: Pulmonary edema on the left side unchanged. Patchy atelectasis and infiltrate right uppe r lobe. Endotracheal tube is in good position.
[2018-11-11] MEDS ORDERED: FUROSEMIDE 10 MG/ML 4 ML VIAL IV STA (16:38)
[2018-11-11 16:54] VITALS: BP 133/67; PULSE 135; RESP 30
[2018-11-11] MEDS ORDERED: PROPOFOL 10 MG/ML 20 ML VIAL IV ONE (16:56)
[2018-11-11] MEDS ORDERED: cefTRIAXone IN SWFI 1,000 MG/10 ML SYRINGE IVP STA (17:10)
--- NOTE | 2018-11-14 02:00 | CDI ---
Dear Pasquale Briscoe MD: Please do addendum clarification on ET tube placement whether done in the ER if done please add procedure notes as in Medication list Amidate, Versed, and Propofol were given and also in chest x-ray discussed about ET tube position. Thank you, Arley Guerra, Clinical Cytogeneticist Scientist. If you have any questions, please contact Senior Marketing Engineer at [phone]. [facility]
--- NOTE | 2018-11-30 11:09 | ED ---
Medical Decision Making - Lab Data Result diagrams: 11/11/18 13:36 11/11/18 13:36 Lab Results 11/11/18 11/11/18 11/11/18 Range/Units 13:30 13:36 13:36 WBC 26.2 H (3.8-10.6) k/uL RBC 4.65 (3.80-5.40) m/uL Hgb 12.4 (11.4-16.0) gm/dL Hct 39.9 (34.0-46.0) % MCV 85.7 (80.0-100.0) fL MCH 26.6 (25.0-35.0) pg MCHC 31.0 (31.0-37.0) g/dL RDW 14.5 (11.5-15.5) % Plt Count 482 H (150-450) k/uL Neutrophils % 93 % Lymphocytes % 3 % Monocytes % 3 % Eosinophils % 0 % Basophils % 0 % Neutrophils # 24.5 H (1.3-7.7) k/uL Lymphocytes # 0.9 L (1.0-4.8) k/uL Monocytes # 0.7 (0-1.0) k/uL Eosinophils # 0.0 (0-0.7) k/uL Basophils # 0.1 (0-0.2) k/uL Hypochromasia Slight PT (9.0-12.0) sec INR (<1.2) APTT (22.0-30.0) sec Sodium (137-145) mmol/L Potassium (3.5-5.1) mmol/L Chloride (98-107) mmol/L Carbon Dioxide (22-30) mmol/L Anion Gap mmol/L BUN (7-17) mg/dL Creatinine (0.52-1.04) mg/dL Est GFR (CKD-EPI)AfAm (>60 ml/min/1.73 sqM) Est GFR (CKD-EPI)NonAf (>60 ml/min/1.73 sqM) Glucose (74-99) mg/dL POC Glucose (mg/dL) 128 H (75-99) mg/dL POC Glu Product Marketing Consultant ID Serena Taylor Calcium (8.4-10.2) mg/dL Total Bilirubin (0.2-1.3) mg/dL AST (14-36) U/L ALT (9-52) U/L Alkaline Phosphatase (38-126) U/L Ammonia 23 (<30) umol/L Troponin I (0.000-0.034) ng/mL Total Protein (6.3-8.2) g/dL Albumin (3.5-5.0) g/dL Urine Color Urine Appearance (Clear) Urine pH (5.0-8.0) Ur Specific [place] (1.001-1.035) Urine Protein (Negative) Urine Glucose (UA) (Negative) Urine Ketones (Negative) Urine Blood (Negative) Urine Nitrite (Negative) Urine Bilirubin (Negative) Urine Urobilinogen (<2.0) mg/dL Ur Leukocyte Esterase (Negative) Urine RBC (0-5) /hpf Ur Squamous Epith Cells (0-4) /hpf Urine Mucus (None) /hpf Urine Opiates Screen (NotDetected) Ur Oxycodone Screen (NotDetected) Urine Methadone Screen (NotDetected) Ur Propoxyphene Screen (NotDetected) Ur Barbiturates Screen (NotDetected) U Tricyclic Antidepress (NotDetected) Ur Phencyclidine Scrn (NotDetected) Ur Amphetamines Screen (NotDetected) U Methamphetamines Scrn (NotDetected) U Benzodiazepines Scrn (NotDetected) Urine Cocaine Screen (NotDetected) U Marijuana (THC) Screen (NotDetected) 11/11/18 11/11/18 11/11/18 Range/Units 13:36 13:36 13:36 WBC (3.8-10.6) k/uL RBC (3.80-5.40) m/uL Hgb (11.4-16.0) gm/dL Hct (34.0-46.0) % MCV (80.0-100.0) fL MCH (25.0-35.0) pg MCHC (31.0-37.0) g/dL RDW (11.5-15.5) % Plt Count (150-450) k/uL Neutrophils % % Lymphocytes % % Monocytes % % Eosinophils % % Basophils % % Neutrophils # (1.3-7.7) k/uL Lymphocytes # (1.0-4.8) k/uL Monocytes # (0-1.0) k/uL Eosinophils # (0-0.7) k/uL Basophils # (0-0.2) k/uL Hypochromasia PT 10.4 (9.0-12.0) sec INR 1.0 (<1.2) APTT 24.4 (22.0-30.0) sec Sodium 140 (137-145) mmol/L Potassium 4.4 (3.5-5.1) mmol/L Chloride 104 (98-107) mmol/L Carbon Dioxide 21 L (22-30) mmol/L Anion Gap 15 mmol/L BUN 18 H (7-17) mg/dL Creatinine 0.75 (0.52-1.04) mg/dL Est GFR (CKD-EPI)AfAm >90 (>60 ml/min/1.73 sqM) Est GFR (CKD-EPI)NonAf >90 (>60 ml/min/1.73 sqM) Glucose 131 H (74-99) mg/dL POC Glucose (mg/dL) (75-99) mg/dL POC Glu Product Marketing Consultant ID Calcium 10.0 (8.4-10.2) mg/dL Total Bilirubin 0.7 (0.2-1.3) mg/dL AST 34 (14-36) U/L ALT 15 (9-52) U/L Alkaline Phosphatase 101 (38-126) U/L Ammonia (<30) umol/L Troponin I <0.012 (0.000-0.034) ng/mL Total Protein 8.5 H (6.3-8.2) g/dL Albumin 4.6 (3.5-5.0) g/dL Urine Color Urine Appearance (Clear) Urine pH (5.0-8.0) Ur Specific [place] (1.001-1.035) Urine Protein (Negative) Urine Glucose (UA) (Negative) Urine Ketones (Negative) Urine Blood (Negative) Urine Nitrite (Negative) Urine Bilirubin (Negative) Urine Urobilinogen (<2.0) mg/dL Ur Leukocyte Esterase (Negative) Urine RBC (0-5) /hpf Ur Squamous Epith Cells (0-4) /hpf Urine Mucus (None) /hpf Urine Opiates Screen (NotDetected) Ur Oxycodone Screen (NotDetected) Urine Methadone Screen (NotDetected) Ur Propoxyphene Screen (NotDetected) Ur Barbiturates Screen (NotDetected) U Tricyclic Antidepress (NotDetected) Ur Phencyclidine Scrn (NotDetected) Ur Amphetamines Screen (NotDetected) U Methamphetamines Scrn (NotDetected) U Benzodiazepines Scrn (NotDetected) Urine Cocaine Screen (NotDetected) U Marijuana (THC) Screen (NotDetected) 11/11/18 Range/Units 14:15 WBC (3.8-10.6) k/uL RBC (3.80-5.40) m/uL Hgb (11.4-16.0) gm/dL Hct (34.0-46.0) % MCV (80.0-100.0) fL MCH (25.0-35.0) pg MCHC (31.0-37.0) g/dL RDW (11.5-15.5) % Plt Count (150-450) k/uL Neutrophils % % Lymphocytes % % Monocytes % % Eosinophils % % Basophils % % Neutrophils # (1.3-7.7) k/uL Lymphocytes # (1.0-4.8) k/uL Monocytes # (0-1.0) k/uL Eosinophils # (0-0.7) k/uL Basophils # (0-0.2) k/uL Hypochromasia PT (9.0-12.0) sec INR (<1.2) APTT (22.0-30.0) sec Sodium (137-145) mmol/L Potassium (3.5-5.1) mmol/L Chloride (98-107) mmol/L Carbon Dioxide (22-30) mmol/L Anion Gap mmol/L BUN (7-17) mg/dL Creatinine (0.52-1.04) mg/dL Est GFR (CKD-EPI)AfAm (>60 ml/min/1.73 sqM) Est GFR (CKD-EPI)NonAf (>60 ml/min/1.73 sqM) Glucose (74-99) mg/dL POC Glucose (mg/dL) (75-99) mg/dL POC Glu Product Marketing Consultant ID Calcium (8.4-10.2) mg/dL Total Bilirubin (0.2-1.3) mg/dL AST (14-36) U/L ALT (9-52) U/L Alkaline Phosphatase (38-126) U/L Ammonia (<30) umol/L Troponin I (0.000-0.034) ng/mL Total Protein (6.3-8.2) g/dL Albumin (3.5-5.0) g/dL Urine Color Yellow Urine Appearance Turbid H (Clear) Urine pH 6.0 (5.0-8.0) Ur Specific [place] 1.041 H (1.001-1.035) Urine Protein 3+ H (Negative) Urine Glucose (UA) Negative (Negative) Urine Ketones 2+ H (Negative) Urine Blood Moderate H (Negative) Urine Nitrite Negative (Negative) Urine Bilirubin Negative (Negative) Urine Urobilinogen <2.0 (<2.0) mg/dL Ur Leukocyte Esterase Negative (Negative) Urine RBC 1 (0-5) /hpf Ur Squamous Epith Cells <1 (0-4) /hpf Urine Mucus Rare H (None) /hpf Urine Opiates Screen Detected H (NotDetected) Ur Oxycodone Screen Not Detected (NotDetected) Urine Methadone Screen Not Detected (NotDetected) Ur Propoxyphene Screen Not Detected (NotDetected) Ur Barbiturates Screen Not Detected (NotDetected) U Tricyclic Antidepress Not Detected (NotDetected) Ur Phencyclidine Scrn Not Detected (NotDetected) Ur Amphetamines Screen Not Detected (NotDetected) U Methamphetamines Scrn Not Detected (NotDetected) U Benzodiazepines Scrn Detected H (NotDetected) Urine Cocaine Screen Not Detected (NotDetected) U Marijuana (THC) Screen Not Detected (NotDetected) Disposition Clinical Impression: Altered mental status Disposition: TRANSFER TO SHORT TERM HOSP Referrals: Amy Harper MD [Primary Care Provider] - 1-2 days Procedures - Intubation Sedative: Versed Paralytic: Rocuronium Laryngoscope: Semaj Size: 3 ET Tube Size: 7.5 ET Tube Uncuffed: No Tube Secured Depth (cm): 22 Tube Placement Confirmation: visualized tube passing through cords, equal breath sounds bilaterally, confirmation by capnometry Patient Tolerated Procedure: well Intubation Complications: none
== END 2018-11-11 17:15 | disposition short-term general hospital (02) ==
LOC: EC 13:19
DX: R41.82 Altered mental status, unspecified (principal); I63.9 Cerebral infarction, unspecified; R00.0 Tachycardia, unspecified; R11.10 Vomiting, unspecified; R06.89 Other abnormalities of breathing; R09.89 Other specified symptoms and signs involving the circulatory and respiratory systems; M79.7 Fibromyalgia; F41.9 Anxiety disorder, unspecified; Z88.8 Allergy status to other drugs, medicaments and biological substances; Z79.899 Other long term (current) drug therapy; Z82.49 Family history of ischemic heart disease and other diseases of the circulatory system; Z53.8 Procedure and treatment not carried out for other reasons
CPT/HCPCS: 99291; 31500; 96365; 96367; 96375 ×2; 96376 ×2; 36415; 36600; 93005; 80053; 82140; 84484; 85025; 85610; 85730; 81001; 80306; 87070; 87205; 71045; 70496; 70450; 70498; J0330; J1940 ×2; J3010 ×2; J0696; J2250; J2704 ×2; Q9967; 94002